=== PATIENT | female | born 1950 | race Caucasian/White ===

== ENCOUNTER 2020-09-10 10:25 | Emergency (ER) | payer MEDICARE ==
[~2020-09-10] VITALS: Ht 154.9 cm; Wt 81.8 kg
[2020-09-10] MEDS ORDERED: LOSARTAN POTASS25 MG (10:39)
[2020-09-10] MEDS ORDERED: ACETAMINOPHEN 325 MG TAB PO ONE (11:00)
[2020-09-10] MEDS ORDERED: MUPIROCIN 2% OINT 22 GM TUBE TOP ONE (11:00)
[2020-09-10] MEDS ORDERED: PIPER-TAZ 3.375 GM 50 ML IV ONE (11:00)
[2020-09-10] MEDS ORDERED: LIDOCAINE HCL 1% LOCAL INJ 20 ML VIAL INJ STA (11:00)
--- OUTSIDE RECORDS SUMMARY | 2020-09-10 11:07 | XMS REPORT | Continuity of Care Document ---
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 Data Entry Processor Name Role Phone [email or web address] Unavailable Un available Problems Problem Status Onset Date Classification Date Reported Comments Source DX:M79.89 OTHER SPECIFIED SOFT TISSUE DI Active 04/23/2020 [facility] Epigastric pain 08/17/2018 03/03/2019 [facility] Encounter for general adult medical exam ination without abnormal findings 10/25/2017 01/25/2018 [facility] Z00.00 - [facility] Active 10/19/2017 [facility] [place] Newly diagnosed diabetes Active Problem 11/01/2019 [facility] BMI 31.0-31.9,adult Active Problem 11/01/2019 [facility] Right sided sciatica Active Problem 08/19/2020 [facility] Sciatica of right side Active Problem 08/19/2020 [facility] Right sciatic nerve pain Active Problem 08/19/2020 [facility] Gastritis, presence of bleeding unspecif ied, unspecified chronicity, unspecified gastritis type Active Problem 08/19/2020 [facility] Acute right-sided low back pain with rig ht-sided sciatica Active Prob carlos 08/19/2020 [facility] Type 2 diabetes mellitus with hyperglyce torrey, without long-term current use of insulin Active Problem 08/19/2020 [facility] Lumbago with sciatica, right side Active Problem 08/2020 [facility] Lumbago with sciatica, left side Active Problem 08/2020 [facility] Incomplete right bundle branch block Active Problem 08/2020 [facility] Family history of stroke Active Problem 08/19/2020 [facility] Family history of heart attack Active Problem 08/2020 [facility] Hypertension, unspecified type Active Problem 08/2020 [facility] Mixed hyperlipidemia Active Problem 08/19/2020 [facility] Chronic obstructive pulmonary disease, u nspecified COPD type Active Prob carlos 11/01/2019 [facility] Gastroenteritis Active Diagnosis 05/28/2019 [facility] Diarrhea, unspecified type Act debora Diagnosis 1 10/28/2018 [facility] Nausea Active Diagnosis 05/23/2019 [facility] Encounter for hepatitis C screening test for low risk patient Active Diag nosis 05/28/2019 [facility] Asymptomatic menopausal state Active Diagnosis 0 05/28/2019 [facility] Routine general medical examination at a health care facility Active Diag nosis 05/28/2019 [facility] Ganglion cyst Active Problem 02/22/2018 [facility] Primary osteoarthritis of right foot Active Problem [facility] Glaucoma of both eyes, unspecified glaucoma type Active Diagnosis 03/30/2018 [facility] Prediabetes Active Diagnosis 07/21/2018 [facility] Cervical radiculopathy Active Diagnosis 03/30/2018 [facility] Cough Active Diagnosis 01/03/2020 [facility] Acute non-recurrent maxillary sinusitis Active Diagnosis 04/22/2018 [facility] Acute sinusitis, recurrence not specifie d, unspecified location Active Diag nosis 09/05/2018 [facility] Sore throat Active Diagnosis 09/05/2018 [facility] Flu-like symptoms Active Diagnosis 09/05/2018 [facility] Cellulitis, unspecified cellulitis site Active Diagnosis 01/21/2019 [facility] Herpes zoster without complication Active Diagnosis 0 01/21/2019 [facility] Adverse effect of angiotensin-converting -enzyme inhibitors, initial encounter Active Diagnosis 07/21/2018 [facility] Acute pain of right shoulder A ctive Diagnosis 1 10/15/2017 [facility] Dog bite, initial encounter Ac tive Diagnosis 0 11/02/2018 [facility] Right wrist pain Active Diagnosis 11/24/2018 [facility] Right hand pain Active Diagnosis 11/24/2018 [facility] Suspicious nevus Active Diagnosis 11/01/2019 [facility] URI with cough and congestion Active Diagnosis 0 11/25/2019 [facility] History of URI (upper respiratory infection) Active Diagnosis 02/07/2020 [facility] Exposure to COVID-19 virus Act debora Diagnosis 0 02/07/2020 [facility] Fever, unspecified fever cause Active Diagnosis 0 01/03/2020 [facility] Seasonal allergies Active Problem 08/19/2020 [facility] Pain in right knee Active Diagnosis 04/24/2020 [facility] Pain in left knee Active Diagnosis 04/24/2020 [facility] Right medial knee pain Active Diagnosis 05/01/2020 [facility] Left lateral knee pain Active Diagnosis 05/01/2020 [facility] Left leg swelling Active Diagnosis 05/01/2020 [facility] Encounter for screening mammogram for ma lignant neoplasm of breast Active Diag nosis 08/10/2020 [facility] Hypercholesterolemia (disorder) Resolved Problem TAKES MEDICATION DUE TO FAMILY HX [facility] [place] Hypertensive disorder, systemic arterial (disorder) Resolved Problem 04/25/2020 [facility] [place] Simple obesity (disorder) Acti ve Problem [facility] [place] Eructation 03/03/2019 [facility] [place] Essential (primary) hypertension 03/03/2019 [facility] [place] Obesity, unspecified 03/03/2019 [facility] [place] Body mass index (BMI) 31.0-31.9, adult 03/03/2019 [facility] [place] Personal history of nicotine dependence 03/03/2019 [facility] [place] Dietary counseling and surveillance 03/03/2019 [facility] [place] Diaphragmatic hernia without obstruction or gangrene 03/03/2019 [facility] [place] Diverticulosis of intestine, part unspec ified, without perforation or abscess without bleeding 03/03/2019 [facility] [place] Benign neoplasm of right adrenal gland 03/03/2019 [facility] [place] Cyst of kidney, acquired 03/03/2019 [facility] [place] Medications Medication Details Route Status Patient Instructions Ordering Provider Order Date Source Xyzal 1 tablet Orally Active 5 MG Orally Once a day [facility] 08/06/2020 [facility] Benzonatate 1 capsule Orally Active 200 MG Orally Q8 PRN Tereso 01/02/2020 [facility] Azithromycin 1 tablet Orally Active 500 MG Orally once ashok y Tereso 01/02/2020 [facility] Zithromax Z-Ludwin 2 tablets on the first day, then 1 tablet daily for 4 days Orally Active 250 MG Orally Once a day [place] 11/15/2019 [facility] Sucralfate 1 tablet on an empt y stomach Orally Active 1 GM Orally Twice a day [facility] 05/07/2019 [facility] Pantoprazole Sodium 1 tablet Orally Active 20 mg Orally Once a day [facility] 05/07/2019 [facility] Dicyclomine HCl 2 capsules Orally Active 10 mg Orally Four times a day [facility] 05/07/2019 [facility] Ondansetron 1 tablet on the to ngue and allow to dissolve as needed Orally Active 8 MG Orally twice a day (bid) as needed (prn) [facility] 05/07/2019 [facility] Bactrim DS 1 tablet Orally Active 800-160 MG Orally Twice a day [facility] 01/08/2019 [facility] Valtrex 1 tablet Orally Active 1 GM Orally three times a day (tid) [facility] 01/08/2019 [facility] Meloxicam 1 tablet Orally Active 15 MG Orally Once a day [facility] 10/25/2018 [facility] Augmentin 1 tablet Orally Active 875-125 MG Orally every 12 hrs [facility] 10/22/2018 [facility] Medrol (Ludwin) as directed Orally Active 4 mg Orally as directed [facility] 09/28/2018 [facility] Tramadol HCl 1 tablet as needed Orally Active 50 mg Orally up to BID [place] 09/20/2018 [facility] Protonix 40 mg, PO, Daily, # 3 0 tab, 0 Refill(s) Active 09/12/2018 [facility] rosuvastatin PO, Bedtime, 0 Re fill(s) Active 09/12/2018 [facility] Losartan PO, Daily, 0 Refill(s) Active 09/12/2018 [facility] Bromfed DM 10 ml Orally Active 30-2-10 MG/5ML Orally e very 4 hrs prn [place] 08/21/2018 [facility] Augmentin 1 tablet Orally Active 875-125 MG Orally every 12 hrs [facility] Richardson 08/21/2018 [facility] Rosuvastatin Calcium 1 tablet Orally Active 40 mg Orally Once a day [place] 08/10/2018 [facility] Losartan Potassium 1 tablet Orally Active 25 MG Orally Once a day [place] 07/16/2018 [facility] Medrol as directed & to be sta rted sat am as discussed w/ pt Orally Active 4 mg Orally as directed Nayla galicia 03/28/2018 [facility] Augmentin 1 tablet Orally Active 875-125 MG Orally every 12 hrs [place] 03/28/2018 [facility] Tramadol HCl 1 tablet as needed Orally Active 50 mg Orally up to BID Traas Richardson [facility] Lisinopril 1 tablet Orally Active 5 MG Orally Once a day [facility] Lovastatin 1 tablet with a meal Orally Active 10 MG Orally Once a day Tar[facility] Richardson [facility] Vitamin B12 not defined Orally Active 100 MCG Orally Tar[facility] Richardson [facility] Tramadol HCl 1 tablet as needed Orally Active 50 mg Orally up to BID [facility] Losartan Potassium 1 tablet Orally Active 25 MG Orally Once a day [facility] Rosuvastatin Calcium 1 tablet Orally Active 40 MG Orally qd [facility] Allergies, Adverse Reactions, Alerts Substance Category Reaction Severity Reaction type Status Date Reported Comments Source CIPRO Adverse Reaction stomach upset Adverse Reaction Active 08/06/2020 [facility] Immunizations No Data Provided for This Section Results No Data Provided for This Section Pathology Reports No Data Provided for This Section Diagnostic Reports Report Value Date Source Ext Lower Venous Doppler Unilat US PROCEDURE INFORMATION: Exam: US Duplex Left Lower Extremity Veins, Limited Exam date and time: 04/23/2020 1:09 PM Age: 69 years old Clinical indication: Swelling (edema) of limb; Lower extremity, left; Additional info: /swelling TECHNIQUE: Imaging protocol: Real-time Duplex ultrasound of the Left Lower Extremity with 2-D sandhu scale, color Doppler flow and s pectral waveform analysis with image documentation. Limited exam focused on the left lower extremity veins. COMPARISON: No relevant prior studies available. FINDINGS: Left deep veins: Unremarkable. The common femoral, femoral, proximal profunda femoral and popliteal veins are patent without thrombus. Normal Doppler waveforms. Normal compressibility and/or augmentation response. Left superficial veins: Unremarkable. Saphenofemoral junction is patent without thrombus. Soft tissues: Unremarkable. IMPRESSION: No evidence of deep vein thrombosis. Herb Degroot On 04/23/2020 13:40:41; [id number] 04/23/2020 [facility] Abdomen/Pelvis w/wo IV contrast CT Addendum 08/13/2018 at 1136 hours. The left adrenal is normal. EXAM: CT ABDOMEN AND PELVIS WITHOUT AND WITH CONTRAST DATE: 08/13/2018 8:34 AM [employer] INDICATION: Upper abdominal pain chronic. Gastritis.. ADDITIONAL INFORMATION: Status post cholecystectomy and hysterectomy. COMPARISON: None. TECHNIQUE: Volumetric CT acquisition of the abdomen and pelvis without and with the intravenous administration contrast was performed and.axial, coronal and sagittal reconstructions were rendered. Postcontrast phases: Portal Venous and Delayed. IV contrast: Omnipaque 300, 100 mL. Oral contrast: Omnipaque 300, dilute. DLP: 2629 mGy-cm FINDINGS: Lines and tubes: None. Lower thorax: Clear. Liver: Measures 14 cm in length. No focal lesions are seen. A small portion is obscured by beam hardening from cholecystectomy clips. Biliary tree: No intra- or extrahepatic biliary ductal dilation. Gallbladder: Postcholecystectomy changes. Pancreas: Moderate diffuse fatty replacement. Spleen: There are scattered tiny calcified granulomas. Measures 9.1 cm in length. Adrenals: There is a right adrenal 0.8 cm nodule that measures between 0 and 10 Hounsfield units on the noncontrast images consistent with an adenoma and measures 42% relative washout consistent with an adenoma. Kidneys and ureters: The right kidney is normal. 1. There is an interpolar left renal cor tical intermediate density cyst measuring 1.2 cm that measures 54 Hounsfield units on portal venous phase and 34 Hounsfield units on delayed phase imaging.It measures approximately 27 Hounsfield units on precontrast imaging but is difficult to localize. 2. There is a tiny partially exophytic i nterpolar posterior left renal cortical cyst. Bladder: Normal. Reproductive organs: The uterus is absent. The adnexa are unremarkable. Gastrointestinal tract: Stomach: Small hiatal hernia.. Small bowel: Unremarkable. Colon: There are a few scattered descending colonic and sigmoid diverticula no associated inflammatory changes are seen. Fecal burden. Mild. Appendix: Normal. Mesentery, peritoneum and retroperitoneum:No fluid, free air or mass. Lymph nodes: Normal. Arteries: Normal. Veins:The opacified portions are patent. Portal vein. The opacified portions are patent. Bones: Moderate lumbar degenerative changes with moderate to severe disc space narrowing is seen. Soft tissues: There is a tiny fat-containing umbilical hernia. IMPRESSION: 1. No acute abnormality seen within the abdomen and pelvis. 2. Scattered descending colonic and pro ximal sigmoid diverticula without inflammatory changes. 3. Small hiatal hernia. 4. Right adrenal adenoma. 5. Indeterminate left interpolar renal cortical hypodensity concerning for possible enhancement. Further characterization with multiphase renal CT is recommended. 6. There is a tiny lower pole exophytic 0.4 cm left renal cyst. 08/13/2018 [facility] Chest 2 views DX Study: Chest 2 views DX 10/19/2017 1:34 PM [employer] Clinical Indication:67 years Female - Z00.00 Encounter for general adult medical examination without abnormal findings ; Comparison: None available Findings: Heart size and central vasculature are within normal limits. There is no effusion or focal pneumonia. No acute osseus pathology. Status post cholecystectomy and partially visualized lower cervical ACDF. Impression: No acute abnormality. 10/19/2017 IS[facility]EL [place] Consultation Notes No Data Provided for This Section Discharge Summaries No Data Provided for This Section History and Physicals No Data Provided for This Section Vital Signs Vital Sign Value Date Comments Source Weight 179 08/06/2020 [facility] Height 61 1 [facility] Temperature Oral (F) 97.7 F 08/06/2020 [facility] Heart Rate 86 08/06/2020 [facility] Diastolic (mm Hg) 80 08/06/2020 [facility] Systolic (mm Hg) 120 08/06/2020 [facility] Weight 173 04/23/2020 [facility] Height 61 0 04/23/2020 [facility] Temperature Oral (F) 98.7 F 04/23/2020 [facility] Heart Rate 95 04/23/2020 [facility] Diastolic (mm Hg) 84 04/23/2020 [facility] Systolic (mm Hg) 126 04/23/2020 [facility] Temperature Oral (F) 98.2 F 02/06/2020 [facility] Height 61 0 02/06/2020 [facility] Temperature Oral (F) 100.9 F 01/02/2020 [facility] Height 61 0 01/02/2020 [facility] Weight 167 11/15/2019 [facility] Height 61 0 11/15/2019 [facility] Temperature Oral (F) 98.7 F 11/15/2019 [facility] Heart Rate 85 11/15/2019 [facility] Diastolic (mm Hg) 62 11/15/2019 [facility] Systolic (mm Hg) 122 11/15/2019 [facility] Weight 165 10/28/2019 [facility] Height 61 0 10/28/2019 [facility] Heart Rate 88 10/28/2019 [facility] Diastolic (mm Hg) 78 10/28/2019 [facility] Systolic (mm Hg) 118 10/28/2019 [facility] Weight 167 05/15/2019 [facility] Height 61 0 05/15/2019 [facility] Heart Rate 94 05/15/2019 [facility] Diastolic (mm Hg) 80 05/15/2019 [facility] Systolic (mm Hg) 120 05/15/2019 [facility] Weight 166 05/07/2019 [facility] Height 61 0 05/07/2019 [facility] Heart Rate 106 05/07/2019 [facility] Diastolic (mm Hg) 68 05/07/2019 [facility] Systolic (mm Hg) 94 05/07/2019 [facility] Weight 176 01/08/2019 [facility] Height 61 0 01/08/2019 [facility] Heart Rate 78 01/08/2019 [facility] Diastolic (mm Hg) 90 01/08/2019 [facility] Systolic (mm Hg) 140 01/08/2019 [facility] Weight 170 11/12/2018 [facility] Height 61 0 11/12/2018 [facility] Heart Rate 71 11/12/2018 [facility] Diastolic (mm Hg) 70 11/12/2018 [facility] Systolic (mm Hg) 112 11/12/2018 [facility] Weight 170 10/22/2018 [facility] Height 61 0 10/22/2018 [facility] Heart Rate 92 10/22/2018 [facility] Diastolic (mm Hg) 78 10/22/2018 [facility] Systolic (mm Hg) 120 10/22/2018 [facility] Weight 165 09/20/2018 [facility] Height 61 1 11/21/2017 [facility] Heart Rate 86 09/20/2018 [facility] Diastolic (mm Hg) 74 09/20/2018 [facility] Systolic (mm Hg) 128 09/20/2018 [facility] Height 154.94 cm 09/12/2018 [facility] BMI Calculated 31.43 09/12/2018 [facility] Weight 75.455 09/12/2018 [facility] Weight 167 08/21/2018 [facility] Height 61 1 10/21/2017 [facility] Temperature Oral (F) 98.1 F 08/21/2018 [facility] Heart Rate 108 08/21/2018 [facility] Diastolic (mm Hg) 74 08/21/2018 [facility] Systolic (mm Hg) 122 08/21/2018 [facility] Weight 168 08/10/2018 [facility] Height 61 1 10/10/2017 [facility] Temperature Oral (F) 97.9 F 08/10/2018 [facility] Heart Rate 62 08/10/2018 [facility] Diastolic (mm Hg) 72 08/10/2018 [facility] Systolic (mm Hg) 120 08/10/2018 [facility] Weight 168 07/16/2018 [facility] Height 61 1 [facility] Temperature Oral (F) 97.7 F 07/16/2018 [facility] Heart Rate 92 07/16/2018 [facility] Diastolic (mm Hg) 80 07/16/2018 [facility] Systolic (mm Hg) 132 07/16/2018 [facility] Weight 165 03/28/2018 [facility] Height 61 0 03/28/2018 [facility] Temperature Oral (F) 98.9 F 03/28/2018 [facility] Heart Rate 76 03/28/2018 [facility] Diastolic (mm Hg) 86 03/28/2018 [facility] Systolic (mm Hg) 122 03/28/2018 [facility] Weight 168.6 03/27/2018 [facility] Height 61 0 03/27/2018 [facility] Heart Rate 75 03/27/2018 [facility] Diastolic (mm Hg) 76 03/27/2018 [facility] Systolic (mm Hg) 120 03/27/2018 [facility] Encounters Location Location Details Encounter Type Encounter Number Reason For Visit Attending Provider ADM Date DC Date Status Source [facility] [place] [facility] [id number] Paulo Johnson 10/19/2017 10/20/2017 [facility] De [facility] [place] [facility] Di[facility] [id number] Eliazar Lagos 08/13/2018 08/14/2018 [facility] PreReg [id number] Deborah Pam 08/15/2018 09/18/2018 [facility] Outpatient [id number] AVANI SUSANA 09/12/2018 Active [facility] Outpatient [id number] Avani Susana 09/12/2018 09/13/2018 Medical [facility] PreReg [id number] Avani Susana 09/12/2018 10/25/2018 [facility] Outpatient [id number] AVANI SUSANA 10/10/2018 [facility] [id number] Avani Susana 10/10/2018 10/10/2018 [facility] Outpatient [id number] AVANI SUSANA 10/31/2018 Active [facility] Pre-Reg [id number] Avani Susana 10/31/2018 10/31/2018 Medical [facility] Outpatient [id number] AVANI SUSANA 11/21/2018 Active [facility] Outpatient [id number] Avani Susana 01/02/2019 [facility] Outpatient [id number] Deborah Grajeda Dylan 04/23/2020 04/24/2020 [facility] Procedures Procedure Code Date Perfomer Comments Source Gallbladder operation [id number] [facility], ISAEL [place] Hysterectomy<sup>1</sup> [id number] [facility], [place] [place] Neck artery repair [id number] [facility], [facility] [place] Assessment and Plan No Data Provided for This Section Plan of Care No Data Provided for This Section Social History Social History Date Source Social History TypeResponse Smoking Status Never smoker; Exposure to Tobacco Smoke None; Cigarette Smoking Last 365 Days No; Reg Smoking Cessation Counseling No entered on: 01/02/19 01/02/2019 [facility] Social History TypeResponse Smoking Status Never smoker; Exposure to Tobacco Smoke None; Cigarette Smoking Last 365 Days No; Reg Smoking Cessation Counseling No entered on: 01/02/19 01/02/2019 [facility] Social History TypeResponse Smoking Status Never smoker; Exposure to Tobacco Smoke None; Cigarette Smoking Last 365 Days No; Reg Smoking Cessation Counseling No entered on: 01/02/19 01/02/2019 ISAEL Leija No data available for this section 10/20/2017 ISAEL De Leon Family History No Data Provided for This Section Advance Directives No Data Provided for This Section Functional Status No Data Provided for This Section
--- OUTSIDE RECORDS SUMMARY | 2020-09-10 11:07 | XMS REPORT | Clinical Summary ---
Author Author [facility] Organization [facility] Address Unknown Phone Unavailable Care Team Providers Care Patient Portal Representative Name Role Phone Paulo Johnson MD PCP Allergies Comments Active Allergy Reactions Severity Noted Date Ciprofloxacin 03/19/2018 Medications End Date Status Medication Sig Dispensed Refills Start Date Active ibuprofen (ADVIL,MOTRIN) 0 800 MG tablet 8 Active lisinopril 0 (PRINIVIL,ZESTRIL) 5 mg 8 tablet Active loratadine (CLARITIN) 10 0 mg tablet 8 Active lovastatin (MEVACOR) 20 0 MG tablet 8 Active omeprazole (PriLOSEC) 20 0 MG capsule 8 Active Problems No known active problems Surgical History Surgery Date Site/Laterality Comments POLYPECTOMY CHOLECYSTECTOMY HYSTERECTOMY CERVICAL SPINE SURGERY Medical History Medical History Date Comments Allergic Hypertension Hypercholesterolemia Social History Date Tobacco Use Types Packs/Day Years Used Never Smoker Smokeless Tobacco: Never Used Drinks/Week oz/Week Comments Alcohol Use No Sex Assigned at Date Recorded Not on file Last Filed Vital Signs Not on file Plan of Treatment Health Maintenance Due Date Last Done Comments BREAST CANCER SCREENING 1998 COLONOSCOPY SCREENING 1998 SHINGLES VACCINES (#1) 1998 65+ PNEUMOCOCCAL VACCINE 2013 ( - PPSV23) INFLUENZA VACCINE 05/09/2020 Results Not on fileafter 09/10/2019 Insurance Type Payer Benefit Subscriber ID Effective Phone Address Plan / Dates Group HMO HUMANA MEDICARE HUMANA HMO [id number] 2017-P GOLD PLUS resent MEDICARE Advance Directives For more information, please contact: [phone] 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
--- OUTSIDE RECORDS SUMMARY | 2020-09-10 11:08 | XMS REPORT | Continuity of Care Document ---
Author Author [facility] t Organization [facility] Address [address] [place] [address] Phone Unavailable Care Team Providers Care Field Nurse Name Role Phone Jordan Johnson MD PCP Karson Marte Attphys Unavailable Dre Meza Attphys Charlene Orozco Attphys GINGER BRANDNO M.D. Attphys Unavailable Roge Lagos Attphys Jordan Johnson Attphys Payers Payer Name Policy Type Policy Number Effective Date Expiration Date S ource Problems Condition Name Condition Details Condition Category Status Onset Date Resolution Date Last Treatment Date Treating Clinician Comments Source DX:M79.89 OTHER SPECIFIED SOFT TISSUE DI DX:M79.89 OTHER SPECIFIED SOFT TISSUE DI Active 04/23/2020 [facility] tive 2020-04-23 00:00:00 2020-04-23 13:13:00 M paulette Silva Z00.00 - [facility] FOR GENERAL [facility]ULT [facility] Z00.00 - ENCNTR FOR GENERAL ADULT MEDIC Active 10/19/2017 [facility] [place] Diagnosis Active 2017-10-19 00:01:00 2017-10-19 13:30:00 M paulette Silva Eructation Eruc tation 03/03/2019 [facility] [place] Problem 2019-03-03 11:33:12 [facility] Obesity, unspecified Obes ity, unspecified 03/03/2019 [facility] [place] Problem 2019-03-03 11:33:12 Zachary Silva Personal history of nicotine dependence Personal history of nicotine dependence 03/03/2019 [facility] [place] Problem 2019-03-03 11:33:12 [facility] Dietary counseling and surveillance Dietary counseling and surveillance 03/03/2019 [facility] [place] Problem 2019-03-03 11:33:12 [facility] Diaphragmatic hernia without obstruction or gangrene Diaphragmatic hernia without obstruction or gangrene 03/03/2019 [facility] [place] Problem 2019-03-03 11:33:12 Brody Silva Diverticulosis of intestine, part unspec ified, without perforation or abscess without bleeding Diverticulosis o f intestine, part unspecified, without perforation or abscess without bleeding 03/03/2019 [facility] [place] Problem 2019-03-03 11:33:12 [facility] 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 03/03/2019 [facility] [place] Problem 2019-03-03 11:33:12 [facility] Cyst of kidney, acquired Cyst of kidney, acquired 03/03/2019 [facility] [place] Problem 2019-03-03 11:33:12 [facility] Hypercholesterolemia (disorder) Hypercholesterolemia (disorder) Resolved Problem 04/25/2020 TAK[facility] MEDICATION DUE TO [facility]ILY [facility] Resolved 2020-04-25 22:48:51 [facility] Hypertensive disorder, systemic arterial (disorder) Hypertensive disorder, systemic arterial (disorder) [facility]olved 2020-04-25 22:48:51 [facility] Newly diagnosed diabetes Newl y diagnosed diabetes Active Problem 11/01/2019 [facility] Problem Active 2019-11-01 03:03:43 [facility] BMI 31.0-31.9,adult BMI 31.0-31.9,adult Active Problem 11/01/2019 [facility] Problem Active 2019-11-01 03:03:43 Zachary Silva Right sided sciatica Righ t sided sciatica Active Problem 08/19/2020 [facility] Problem Active 2020-08-19 03:04:43 Zachary Silva Gastritis, presence of bleeding unspecif ied, unspecified chronicity, unspecified gastritis type Gastritis, prese nce of bleeding unspecified, unspecified chronicity, unspecified gastritis type Active Problem 08/19/[address] [facility] Problem Active 2020-08-19 03:04:43 Zachary Silva Acute right-sided low back pain with right-sided sciat ica Acute right-sided low back pain with right-sided sciatica Active Problem 08/19/[address] [facility] Problem Active 2020-08-19 03:04:43 Zachary Silva Type 2 diabetes mellitus with hyperglyce torrey, without long-term current use of insulin Type 2 diabetes mellitus with hyperglycemia, without long-term current use of insulin Active Problem 08/19/[address] [facility] Problem Active 2020-08-19 03:04:43 Zachary Silva Lumbago with sciatica, left side Lumbago with sciatica, left side Active Problem 08/19/[address] [facility] Problem Active 2020-08-19 03:04:43 Memor aman Silva Incomplete right bundle branch block Incomplete right bundle branch block Active Problem 08/19/[address] [facility] Problem Active 2020-08-19 03:04:43 Brody sagar Silva Family history of stroke Fami ly history of stroke Active Problem 08/19/[address] [facility] Problem Active 2020-08-19 03:04:43 Zachary Silva Family history of heart attack Family history of heart attack Active Problem 08/19/[address] [facility] Problem Active 2020-08-19 03:04:43 Memor iahuan Silva Hypertension, unspecified type Hypertension, unspecified type Active Problem 08/19/[address] [facility] Problem Active 2020-08-19 03:04:43 Memor iahuan Silva Mixed hyperlipidemia Mixe d hyperlipidemia Active Problem 08/19/[address] [facility] Problem Active 2020-08-19 03:04:43 Zachary Silva Chronic obstructive pulmonary disease, unspecified [employer] D type Chronic obstructive pulmonary disease, unspecified COPD type Active Problem 11/01/[address] [facility] Problem Active 2019-11-01 03:03:43 Zachary Silva Gastroenteritis Kevan roenteritis Active Diagnosis 05/28/2019 [facility] Diagnosis Active 2019-05-28 02:02:41 Zachary Silva Diarrhea, unspecified type Herlinda rrhea, unspecified type Active Diagnosis 08/28/2019 [facility] Diagnosis Active 2019-08-28 03:20:50 Benny Silva Nausea Naus ea Active Diagnosis 05/23/2019 [facility] [place] Diagnosis Active 2019-05-23 02:00:43 Zachary Silva Encounter for hepatitis C screening test for low risk patient Encounter for hepatitis C screening test for low risk patient Active Diagnosis 05/28/2019 [facility] Diagnosis Active 2019-05-28 02:02:41 Zachary Silva Asymptomatic menopausal state Asymptomatic menopausal state Active Diagnosis 05/28/2019 [facility] Diagnosis Active 2019-05-28 02:02:41 Memor aman Silva Routine general medical examination at a health care acility Routine general medical examination at a health care facility Active Diagnosis 05/28/2019 [facility] Diagnosis Active 2019-05-28 02:02:41 Zachary Silva Ganglion cyst Gang lion cyst Active Problem 02/22/2018 [facility] Problem Active 2018-02-22 02:45:20 Zachary Silva Primary osteoarthritis of right foot Primary osteoarthritis of right foot Active Problem 02/22/2018 [facility] Problem Active 2018-02-22 02:45:20 Zachary Silva Glaucoma of both eyes, unspecified glaucoma type Glaucoma of both eyes, unspecified glaucoma type Active Diagnosis 03/30/2018 [facility] Diagnosis Active 2018-03-30 02:10:56 Zachary Silva Prediabetes Pred iabetes Active Diagnosis 07/21/2018 [facility] Diagnosis Active 2018-07-21 02:02:28 Zachary Silva Cervical radiculopathy Cerv ical radiculopathy Active Diagnosis 03/30/2018 [facility] Diagnosis Active 2018-03-30 02:10:56 Zachary Silva Cough Coug h Active Diagnosis 01/03/2020 [facility] Diagnosis Active 2020-01-03 02:04:07 Zachary Silva Acute non-recurrent maxillary sinusitis Acute non- recurrent maxillary sinusitis Active Diagnosis 04/22/2018 [facility] Diagnosis Active 2018-04-22 02:00:58 [facility] Acute sinusitis, recurrence not specified, unspecified location Acute sinusitis, recurrence not specified, unspecified location Active Diagnosis 09/05/2018 [facility] Diagnosis Active 2018-09-05 03:05:52 [facility] Sore throat Sore throat Active Diagnosis 09/05/2018 [facility] Diagnosis Active 2018-09-05 03:05:52 [facility] Flu-like symptoms Flu- like symptoms Active Diagnosis 09/05/2018 [facility] Diagnosis Active 2018-09-05 03:05:52 [facility] Cellulitis, unspecified cellulitis site Cellulitis, unspecified cellulitis site Active Diagnosis 01/21/2019 [facility] Diagnosis Active 2019-01-21 02:00:13 [facility] Herpes zoster without complication Herpes zoster without complication Active Diagnosis 01/21/2019 [facility] Diagnosis Active 2019-01-21 02:00:13 [facility] Adverse effect of oddtgmglkko-wuoshgkkwz-wzfrdl inhibi tors, initial encounter Adverse effect of xiixegvtmus-tfvlassork-czmcbw inhibitors, initial encounter Active Diagnosis 07/21/[address] [facility] Diagnosis Active 2018-07-21 02:02:28 Me morial [facility] Acute pain of right shoulder A cute pain of right shoulder Active Diagnosis 08/15/[address] [facility] Diagnosis Active 2018-08-15 03:03:20 [facility] Dog bite, initial encounter Do g bite, initial encounter Active Diagnosis 11/02/2018 [facility] Diagnosis Active 2018-11-02 03:02:31 [facility] Right wrist pain Righ t wrist pain Active Diagnosis 11/24/2018 [facility] Diagnosis Active 2018-11-24 03:04:52 [facility] Right hand pain Righ t hand pain Active Diagnosis 11/24/2018 [facility] Diagnosis Active 2018-11-24 03:04:52 [facility] Suspicious nevus Susp icious nevus Active Diagnosis 11/01/2019 [facility] Diagnosis Active 2019-11-01 03:03:43 [facility] URI with cough and congestion URI with cough and congestion Active Diagnosis 11/25/2019 [facility] Diagnosis Active 2019-11-25 03:03:23 [facility] History of URI (upper respiratory infection) History of URI (upper respiratory infection) Active Diagnosis 02/07/2020 [facility] Diagnosis Active 2020-02-07 02:02:51 [facility] Exposure to COVID-19 virus Exp osure to COVID-19 virus Active Diagnosis 02/07/2020 [facility] Diagnosis Active 2020-02-07 02:02:51 [facility] Fever, unspecified fever cause Fever, unspecified fever cause Active Diagnosis 01/03/2020 [facility] Diagnosis Active 2020-01-03 02:04:07 [facility] Seasonal allergies Seas onal allergies Active Problem 08/19/2020 [facility] Problem Active 2020-08-19 03:04:43 [facility] Right medial knee pain Righ t medial knee pain Active Diagnosis 05/01/2020 [facility] Diagnosis Active 2020-05-01 02:01:40 [facility] Left lateral knee pain Left lateral knee pain Active Diagnosis 05/01/2020 [facility] Diagnosis Active 2020-05-01 02:01:40 [facility] Left leg swelling Left leg swelling Active Diagnosis 05/01/[address] [facility] Diagnosis Active 2020-05-01 02:01:40 Zachary Silva Encounter for screening mammogram for malignant neopla sm of breast Encounter for screening mammogram for malignant neoplasm of breast Active Diagnosis 08/10/[address] [facility] Diagnosis Active 2020-08-10 03:03:04 [facility] Simple obesity (disorder) Simp le obesity (disorder) Active Problem 04/25/2020 [facility] Problem Active 2020-04-25 22:48:51 [facility] Epigastric pain Epig astric pain 08/17/2018 03/03/2019 [facility] Problem 2018-08-17 05:52:39 2019-03-03 11:33:12 2019-03-03 11:33:12 [facility] Allergies, Adverse Reactions, Alerts Allergy Name Allergy Type Status Severity Reaction(s) Onset Date Inacti ve Date Treating Clinician Comments Source CIPRO CIPRO Active stomach upset 2020-08-06 00:00:00 [facility] pentazocine DA Active U 2019-07-08 00:00:00 [facility] Ciprofloxacin Propensity to adverse reactions to drug Active 2018-03-19 00:00:00 Mookie Shoemaker t penicillin G DA Active SV 2011-09-27 00:00:00 [facility] Social History Social Habit Start Date Stop Date Quantity Comments Source Sex Assigned At Johnny dias Jamshid Tobacco use and exposure 2018-03-19 00:00:00 2018-03-19 00:00:00 Renzo patel used Mookie Breen Alcohol intake 2018-03-19 00:00:00 2018-03-19 00:00:00 Current non-drinker of alcohol (finding) Mookie Breen Social History 2017-10-20 05:59:00 2017-10-20 05:59:00 [facility] Smoking Status Start Date Stop Date Source Social History [facility] Medications Ordered Medication Name Filled Medication Name Start Date Stop Da te Current Medication? Ordering Clinician Indication Dosage Frequency Signature (SIG) Comments Components Source Tramadol HCl 2020-08-10 03:03:04 Yes Deborah Richardson 1 tablet as needed [facility] Losartan Potassium 2020-08-10 03:03:04 Yes Deborah Richardson 1 tablet [facility] Rosuvastatin Calcium 2020-08-10 03:03:04 Yes Deborah Addi howard Richardson 1 tablet [facility] Xyzal 2020-08-06 00:00:00 Yes Deborah Richardson 1 tablet [facility] Benzonatate 2020-01-02 00:00:00 Yes Paty Tereso 1 capsule [facility] Azithromycin 2020-01-02 00:00:00 Yes Paty Tereso 1 tablet [facility] Zithromax Z-Ludwin 2019-11-15 00:00:00 Yes Bob Marte 2 tablets on the first day, then 1 tablet daily for 4 days [facility] Tramadol HCl 2019-11-01 03:03:43 Yes Deborah Richardson 1 tablet as needed [facility] Sucralfate 2019-05-07 00:00:00 Yes Deborah Grajeda Richardson 1 tablet on an empty stomach [facility] Pantoprazole Sodium 2019-05-07 00:00:00 Yes Deborah Blevins l Irchardson 1 tablet [facility] Dicyclomine HCl 2019-05-07 00:00:00 Yes Deborah Richardson 2 capsules [facility] Ondansetron 2019-05-07 00:00:00 Yes Deborah Richardson 1 tablet on the tongue and allow to dissolve as needed [facility] Bactrim DS 2019-01-08 00:00:00 Yes Deborah Richardson 1 tablet [facility] Valtrex 2019-01-08 00:00:00 Yes Deborah Richardson 1 tablet [facility] Meloxicam 2018-10-25 00:00:00 Yes Deborah Richardson 1 tablet [facility] Augmentin 2018-10-22 00:00:00 Yes Deborah Richardson 1 tablet [facility] Medrol (Ludwin) 2018-09-28 00:00:00 Yes Deborah Richardson as directed [facility] Tramadol HCl 2018-09-20 00:00:00 Yes Bob Marte 1 tablet as needed [facility] Protonix 2018-09-12 17:48:00 Yes 40 mg, PO, Daily, # 30 tab, 0 Refill(s) [facility] rosuvastatin 2018-09-12 17:48:00 Yes PO, Bed time, 0 Refill(s) [facility] Losartan 2018-09-12 17:48:00 Yes PO, Daily, 0 Refill(s) [facility] Bromfed DM 2018-08-21 00:00:00 Yes Bob Marte 10 ml [facility] Augmentin 2018-08-21 00:00:00 Yes Deborah Richardson 1 tablet [facility] Lovastatin 2018-08-15 03:03:20 Yes Deborah Richardson 1 tablet with a meal [facility] Vitamin B12 2018-08-15 03:03:20 Yes Deborah Richardson not defined [facility] Rosuvastatin Calcium 2018-08-10 00:00:00 Yes Bob Marte 1 tablet [facility] Lisinopril 2018-07-21 02:02:28 Yes Deborah Richardson 1 tablet [facility] Losartan Potassium 2018-07-16 00:00:00 Yes Bob Marte 1 tablet [facility] Medrol 2018-03-28 00:00:00 Yes Luis Shirley as directed & to be started sat am as discussed w/ pt Ivonne mi [facility] Augmentin 2018-03-28 00:00:00 Yes Luis Shirley 1 tablet [facility] loratadine (CLARITIN) 10 mg tablet 2018-01-23 00:00:00 Yes Mookie Breen ibuprofen (ADVIL,MOTRIN) 800 MG tablet 2018-01-20 00:00:00 Yes Mookie Breen lisinopril (PRINIVIL,ZESTRIL) 5 mg tablet 2018-01-20 00:00:00 Yes Mookie Breen lovastatin (MEVACOR) 20 MG tablet 2018-01-20 00:00:00 Yes Mookie Breen omeprazole (PriLOSEC) 20 MG capsule 2018-01-20 00:00:00 Yes Mookie Breen Vital Signs Vital Name Observation Time Observation Value Comments Source Weight 2020-08-06 18:00:00 [facility] Height 2020-08-06 18:00:00 [facility] Temperature Oral (F) 2020-08-06 18:00:00 97.7 F [facility] Heart Rate 2020-08-06 18:00:00 [facility] Diastolic (mm Hg) 2020-08-06 18:00:00 [facility] Systolic (mm Hg) 2020-08-06 18:00:00 [facility] Weight 2020-04-23 15:15:00 [facility] Height 2020-04-23 15:15:00 [facility] Temperature Oral (F) 2020-04-23 15:15:00 98.7 F [facility] Heart Rate 2020-04-23 15:15:00 [facility] Diastolic (mm Hg) 2020-04-23 15:15:00 [facility] Systolic (mm Hg) 2020-04-23 15:15:00 Brody rial [facility] Temperature Oral (F) 2020-02-06 15:45:00 98.2 F [facility] Height 2020-02-06 15:45:00 [facility] Temperature Oral (F) 2020-01-02 16:00:00 100.9 F [facility] Height 2020-01-02 16:00:00 [facility] Weight 2019-11-15 15:00:00 [facility] Height 2019-11-15 15:00:00 [facility] Temperature Oral (F) 2019-11-15 15:00:00 98.7 F [facility] Heart Rate 2019-11-15 15:00:00 [facility] Diastolic (mm Hg) 2019-11-15 15:00:00 [facility] Systolic (mm Hg) 2019-11-15 15:00:00 Brody [facility] Weight 2019-10-28 17:45:00 [facility] Height 2019-10-28 17:45:00 [facility] Heart Rate 2019-10-28 17:45:00 [facility] Diastolic (mm Hg) 2019-10-28 17:45:00 [facility] Systolic (mm Hg) 2019-10-28 17:45:00 Brody rial [facility] Weight 2019-05-15 15:15:00 [facility] Height 2019-05-15 15:15:00 [facility] Heart Rate 2019-05-15 15:15:00 [facility] Diastolic (mm Hg) 2019-05-15 15:15:00 [facility] Systolic (mm Hg) 2019-05-15 15:15:00 Brody rial [facility] Weight 2019-05-07 19:00:00 [facility] Height 2019-05-07 19:00:00 [facility] Heart Rate 2019-05-07 19:00:00 [facility] Diastolic (mm Hg) 2019-05-07 19:00:00 [facility] Systolic (mm Hg) 2019-05-07 19:00:00 Brody rial [facility] Weight 2019-01-08 14:45:00 [facility] Height 2019-01-08 14:45:00 [facility] Heart Rate 2019-01-08 14:45:00 [facility] Diastolic (mm Hg) 2019-01-08 14:45:00 [facility] Systolic (mm Hg) 2019-01-08 14:45:00 Brody rial [facility] Weight 2018-11-12 20:45:00 [facility] Height 2018-11-12 20:45:00 [facility] Heart Rate 2018-11-12 20:45:00 [facility] Diastolic (mm Hg) 2018-11-12 20:45:00 [facility] Systolic (mm Hg) 2018-11-12 20:45:00 Brody rial [facility] Weight 2018-10-22 22:00:00 [facility] Height 2018-10-22 22:00:00 [facility] Heart Rate 2018-10-22 22:00:00 [facility] Diastolic (mm Hg) 2018-10-22 22:00:00 [facility] Systolic (mm Hg) 2018-10-22 22:00:00 Brody sagar [facility] Weight 2018-09-20 20:00:00 [facility] Height 2018-09-20 20:00:00 [facility] Heart Rate 2018-09-20 20:00:00 [facility] Diastolic (mm Hg) 2018-09-20 20:00:00 [facility] Systolic (mm Hg) 2018-09-20 20:00:00 Brody sagar [facility] Height 2018-09-12 17:46:00 154.94 cm [facility] BMI Calculated 2018-09-12 17:46:00 [facility] Weight 2018-09-12 17:46:00 [facility] Weight 2018-08-21 21:00:00 [facility] Height 2018-08-21 21:00:00 [facility] Temperature Oral (F) 2018-08-21 21:00:00 98.1 F [facility] Heart Rate 2018-08-21 21:00:00 [facility] Diastolic (mm Hg) 2018-08-21 21:00:00 [facility] Systolic (mm Hg) 2018-08-21 21:00:00 Brody sagar [facility] Weight 2018-08-10 14:45:00 [facility] Height 2018-08-10 14:45:00 [facility] Temperature Oral (F) 2018-08-10 14:45:00 97.9 F [facility] Heart Rate 2018-08-10 14:45:00 [facility] Diastolic (mm Hg) 2018-08-10 14:45:00 [facility] Systolic (mm Hg) 2018-08-10 14:45:00 Brody rial [facility] Weight 2018-07-16 16:45:00 [facility] Height 2018-07-16 16:45:00 [facility] Temperature Oral (F) 2018-07-16 16:45:00 97.7 F [facility] Heart Rate 2018-07-16 16:45:00 [facility] Diastolic (mm Hg) 2018-07-16 16:45:00 [facility] Systolic (mm Hg) 2018-07-16 16:45:00 Brody rial [facility] Weight 2018-03-28 20:00:00 [facility] Height 2018-03-28 20:00:00 [facility] Temperature Oral (F) 2018-03-28 20:00:00 98.9 F [facility] Heart Rate 2018-03-28 20:00:00 [facility] Diastolic (mm Hg) 2018-03-28 20:00:00 [facility] Systolic (mm Hg) 2018-03-28 20:00:00 Brody [facility] Weight 2018-03-27 16:30:00 [facility] Height 2018-03-27 16:30:00 [facility] Heart Rate 2018-03-27 16:30:00 [facility] Diastolic (mm Hg) 2018-03-27 16:30:00 [facility] Systolic (mm Hg) 2018-03-27 16:30:00 Brody rial [facility] Procedures Procedure Date / Time Performed Performing Clinician [facility] e Gallbladder operation [facility] ermann Hysterectomy<sup>1</sup> [facility] Neck artery repair [facility] Herm jacqueline Plan of Care Planned Activity Planned Date Details Comments Source Future Scheduled Test 2020-05-09 00:00:00 INFLUENZA VACCINE [code = INFLUENZA VACCINE] [facility] Scheduled Test 2013 00:00:00 65+ PNEUMOCOCCAL V ACCINE (1 of 1 - PPSV23) [code = 65+ PNEUMOCOCCAL VACCINE (1 of 1 - PPSV23)] [facility] Future Scheduled Test 1998 00:00:00 BREAST CANCER SCRE ENING [code = BREAST CANCER SCREENING] [facility] Future Scheduled Test 1998 00:00:00 COLONOSCOPY SCREEN ING [code = COLONOSCOPY SCREENING] [facility] Scheduled Test 1998 00:00:00 SHINGLES VACCINES (#1) [code = SHINGLES VACCINES (#1)] [facility] Encounters Start Date/Time End Date/Time Encounter Type Admission Type Attendi [facility] Care Department Encounter ID Source 2020-08-17 09:35:00 2020-08-17 09:35:00 Outpatient [facility] [id number] eClinicalWorks 2020-08-06 12:00:00 2020-08-06 12:00:00 Outpatient [facility] [id number] eClinicalWorks 2020-07-07 22:52:00 2020-07-07 22:52:00 Outpatient [facility] [id number] eClinicalEye-Q 2020-04-23 13:05:00 2020-04-23 23:59:00 Outpatient Aimee Marte [facility] [id number] 2020-04-23 14:58:00 2020-04-23 14:58:00 [facility] [id number] eClinicalWorks 2020-04-23 13:05:00 2020-04-23 13:05:00 Outpatient [facility] MED [id number] 2020-04-23 10:15:00 2020-04-23 10:15:00 [facility] [id number] eClinicalWorks 2020-02-06 10:45:00 2020-02-06 10:45:00 [facility] [id number] eClinicalWorks 2020-01-29 11:25:00 2020-01-29 11:25:00 [facility] [id number] eClinicalWorks 2020-01-02 11:00:00 2020-01-02 11:00:00 [facility] Practice [facility] [id number] eClinicalWorks 2020-01-01 16:18:00 2020-01-01 16:18:00 Outpatient [facility] [id number] eClinicalWorks 2019-11-15 09:00:00 2019-11-15 09:00:00 Outpatient [facility] [id number] eClinicalWorks 2019-10-28 11:45:00 2019-10-28 11:45:00 Outpatient [facility] [id number] eClinicalWorks 2019-06-11 11:21:00 2019-06-11 11:21:00 Outpatient [facility] [id number] eClinicalWorks 2019-06-11 11:19:00 2019-06-11 11:19:00 Outpatient [facility] [id number] eClinicalWorks 2019-05-15 10:15:00 2019-05-15 10:15:00 Outpatient [facility] [id number] eClinicalWorks 2019-05-08 09:53:00 2019-05-08 09:53:00 Outpatient [facility] [id number] eClinicalWorks 2019-05-07 14:00:00 2019-05-07 14:00:00 Outpatient [facility] [id number] eClinicalWorks 2019-01-08 09:45:00 2019-01-08 09:45:00 Outpatient [facility] [id number] eClinicalWorks 2018-11-12 14:45:00 2018-11-12 14:45:00 Outpatient [facility] [id number] eClinicalWorks 2018-10-31 09:40:00 2018-10-31 09:40:00 Outpatient Juan José Meza [facility] [id number] 2018-10-25 17:00:00 2018-10-25 17:00:00 Outpatient [facility] [id number] eClinicalWorks 2018-10-25 11:52:00 2018-10-25 11:52:00 Outpatient [facility] [id number] eClinicalWorks 2018-09-12 12:22:16 2018-10-25 10:00:00 Outpatient Juan José Meza [facility] [id number] 2018-10-22 16:00:00 2018-10-22 16:00:00 Outpatient [facility] [id number] eClinicalWorks 2018-10-10 14:52:00 2018-10-10 14:52:00 Outpatient [facility] [id number] eClinicalWorks 2018-10-10 10:30:00 2018-10-10 10:30:00 Outpatient Juan José Meza [facility] [id number] 2018-09-28 10:31:00 2018-09-28 10:31:00 Outpatient [facility] [id number] eClinicalWorks 2018-09-26 11:00:00 2018-09-26 11:00:00 Outpatient [facility] [id number] eClinicalWorks 2018-09-24 10:45:00 2018-09-24 10:45:00 Outpatient [facility] [id number] eClinicalWorks 2018-09-20 14:00:00 2018-09-20 14:00:00 Outpatient [facility] [id number] eClinicalWorks 2018-08-15 11:01:15 2018-09-18 11:00:00 Outpatient Deborah Manuel [facility] [id number] 2018-09-12 11:15:00 2018-09-12 23:59:59 Outpatient Juan José Meza [facility] [id number] 2018-09-05 09:30:00 2018-09-05 09:30:00 Appointment; GINGER BRANDON M.D. HUANG, EDDIE, M.D. [facility] [place] [id number] [facility] 2018-08-21 15:00:00 2018-08-21 15:00:00 Outpatient [facility] [id number] eClinicalWorks 2018-08-14 13:05:00 2018-08-14 13:05:00 Outpatient [facility] [id number] eClinicalWorks 2018-08-14 13:03:00 2018-08-14 13:03:00 Outpatient [facility] [id number] eClinicalWorks 2018-08-13 08:28:00 2018-08-13 23:59:00 Outpatient Eliazar Solomon OIB OIB [id number] 2018-08-10 08:45:00 2018-08-10 08:45:00 Outpatient [facility] [id number] eClinicalWorks 2018-07-16 11:45:00 2018-07-16 11:45:00 Outpatient [facility] [id number] eClinicalWorks 2018-07-13 10:01:00 2018-07-13 10:01:00 Outpatient [facility] [id number] eClinicalWorks 2018-03-28 15:00:00 2018-03-28 15:00:00 Outpatient [facility] [id number] eClinicalWorks 2018-03-27 11:30:00 2018-03-27 11:30:00 Outpatient [facility] [id number] eClinicalWorks 2018-02-21 15:36:00 2018-02-21 15:36:00 Outpatient [facility] [id number] eClinicalWorks 2018-02-21 15:31:00 2018-02-21 15:31:00 Outpatient [facility] [id number] eClinicalWorks 2017-10-19 13:19:00 2017-10-19 23:59:00 Outpatient Paulo Johnson [facility] [id number] Results Test Description Test Time Test Comments Results Result Comments Source BASIC METABOLIC PANEL 2019-07-08 15:51:00 Test Item SODIUM (test code = NA) 141 mmol/L 136-145 N POTASSIUM (test code = K) 3.7 mmol/L 3.5-5.1 N CHLORIDE (test code = CL) 108.0 mmol/L 98-107 H CARBON DIOXIDE (test code = CO2) 24.0 mmol/L 21-32 N ANION GAP (test code = GAP) 12.7 10-20 N GLUCOSE (test code = GLU) 161 mg/dL 74-106 H BLOOD UREA NITROGEN (test code = BUN) 16 mg/dL 7-18 N GLOMERULAR FILTRATION RATE (test code = GFR) 55 mL/min >=60 Estimated GFR by using Modified MDRD formula.Chronic kidney disease is defined as either kidney damageor GFR <60 mL/min/1.73 m2 for >3 months. CREATININE (test code = CREAT) 1.00 mg/dL 0.55-1.02 N Note change in reference range due to change in reagent. BUN/CREATININE RATIO (test code = BUN/CREA) 16.4 10-20 N CALCIUM (test code = CA) 8.7 mg/dL 8.5-10.1 N [id number] 15:51:00* Test Item Value Reference Range Interpretation Comments TROPONIN-I (test code = TROPI) <0.015 ng/mL 0-0.045 N BASIC METABOLIC [id number] 15:43:00* Test Item Value Reference Range Interpretation Comments SODIUM (test code = NA) 141 mmol/L 136-145 N POTASSIUM (test code = K) 3.7 mmol/L 3.5-5.1 N CHLORIDE (test code = CL) 108.0 mmol/L 98-107 H CARBON DIOXIDE (test code = CO2) mmol/L 21-32 ANION GAP (test code = GAP) 10-20 GLUCOSE (test code = GLU) mg/dL 74-106 BLOOD UREA NITROGEN (test code = BUN) mg/dL 7-18 GLOMERULAR FILTRATION RATE (test code = GFR) mL/min >=60 CREATININE (test code = CREAT) mg/dL 0.55-1.02 BUN/CREATININE RATIO (test code = BUN/CREA) 10-20 CALCIUM (test code = CA) 8.7 mg/dL 8.5-10.1 N [id number] 15:43:00* Test Item Value Reference Range Interpretation Comments TROPONIN-I (test code = TROPI) ng/mL 0-0.045 CBC W/O [id number] 15:41:00* Test Item Value Reference Range Interpretation Comments WHITE BLOOD CELL (test code = WBC) 5.8 K/mm3 4.5-12.5 N RED BLOOD CELL (test code = RBC) 4.63 mill/mm3 3.7-5.2 N HEMOGLOBIN (test code = HGB) 12.9 gram/dL 11.5-15.5 N HEMATOCRIT (test code = HCT) 38.4 % 36.0-46.0 N MEAN CELL VOLUME (test code = MCV) 82.9 fL 80-98 N MEAN CELL HGB (test code = MCH) 27.9 picogram 27.0-33.0 N MEAN CELL HGB CONCETRATION (test code = MCHC) 33.6 gram/dL 33.0-36. 0 N RED CELL DISTRIBUTION WIDTH (test code = RDW) 13.0 % 11.6-16. 2 N PLATELET COUNT (test code = PLT) 260 K/mm3 150-450 N MEAN PLATELET VOLUME (test code = MPV) 9.0 fL 6.7-11.0 N CBC W/O [id number] 15:28:00* Test Item Value Reference Range Interpretation Comments WHITE BLOOD CELL (test code = WBC) K/mm3 4.5-12.5 RED BLOOD CELL (test code = RBC) mill/mm3 3.7-5.2 HEMOGLOBIN (test code = HGB) 12.9 gram/dL 11.5-15.5 N HEMATOCRIT (test code = HCT) 38.4 % 36.0-46.0 N MEAN CELL VOLUME (test code = MCV) fL 80-98 MEAN CELL HGB (test code = MCH) picogram 27.0-33.0 MEAN CELL HGB CONCETRATION (test code = MCHC) gram/dL 33.0-36. 0 RED CELL DISTRIBUTION WIDTH (test code = RDW) % 11.6-16. 2 PLATELET COUNT (test code = PLT) K/mm3 150-450 MEAN PLATELET VOLUME (test code = MPV) fL 6.7-11.0 - CT C-SPINE W/O [id number] 15:05:00 Name: KURTIS PASTRANA [facility] : 1950 Age/S: 69 / F Erna Blancas Unit #: [id number] Loc: [place] [address] Phys: Parth Bond DO Acct: [id number] Dis Date: Status: REG ER PHONE #: [phone] Exam Date: 07/08/2019 1448 FAX #: [phone] Reason: Neck Pain EXAMS: CPT CODE: [id number] CT C-SPINE W/O CONTRAST [id number] REASON FOR EXAM: Neck Pain EXAM ORDER DATE: 07/08/2019 2:37 PM Ordering MDomitila: Parth Bond DO PROCEDURE: - CT C-SPINE W/O CONTRAST FINDINGS: CT images of the cervical spine were obtained without IV contrast at 2.5mm. Reconstructed coronal and sagittal images were also provided. Dose modulation, iterative reconstruction, and/or weight based adjustment of the MA/KV was utilized to reduce the radiation dose to as low as reasonably achievable. The osseous structures are intact. Anterior cervical fusion of C4-C7 noted with fixation plate present. Sever e narrowing of C3-4 disc space The central canal is patent. IMPRESSION: Anterior cervical fusion of C4-C7. No acute osseous abnormality at 1505 Reported and signed by: Roger Cooley M.D. CC: Eliceo Skinner DO; Parth Bond DO Technologist:Ayanna Garcia RT(R)(CT) CTDI: DLP: Trnscb Date/Time: 07/08/20 (3495) [email or web address] Orig Print D/T: S: 07/08/2019 (4860) PAGE 1 Signed Report - XR CHEST 1 [id number] 15:03:00 FAX: Eliceo Ying DO [phone] [place]: B St: REG FAX: Parth Bond DO Name: KURTIS PASTRANA [facility] : 1950 Age/S: 69/F Erna Blancas Unit #: [id number] Loc: [place] [address] Phys: Parth Bond DO Acct: [id number] Dis Date: Status: REG ER PHONE #: [phone] Exam Date: 07/08/2019 1450 FAX #: [phone] Reason: CHEST PAIN EXAMS: CPT CODE: [id number] XR CHEST 1 V [id number] REASON FOR EXAM: CHEST PAIN EXAM ORDER DATE: 07/08/2019 2:37 PM Ordering Kwame: Parth Bond DO PROCEDURE: - XR CHEST 1 V COMPARISON: FINDINGS: Portable AP frontal view of the chest obtained at 2:52 PM shows clear lungs without evidence of consolidation. There is no evidence of effusion. The heart size is within normal limits. Pulmonary vasculatures are unremarkable. IMPRESSION: No active disease. at 1503 Reported and signed by: Roger Cooley M.D. CC: Eliceo Skinner DO; Parth Bond DO Technologist: Anita JUNIOR(R) Trnscrd Date/Time/By: 07/08/2019 (5948) : By: Favian Orig Print D/T: S: 07/08/2019 (0861) PAGE 1 Signed Report - CT HEAD/BRAIN W/O [id number] 14:50:00 Name: KURTIS PASTRANA [facility] : 1950 Age/S: 69 / F Erna Blancas Unit #: [id number] Loc: [place] [address] Phys: Parth Bond DO Acct: [id number] Dis Date: Status: REG ER PHONE #: Exam Date: 07/08/2019 1447 FAX #: Reason: HEADACHE EXAMS: CPT CODE: [id number] CT HEAD/BRAIN W/O CONT [id number] REASON FOR EXAM: HEADACHE EXAM ORDER DATE: 07/08/2019 2:37 PM Ordering Kwame: Parth Bond DO PROCEDURE: - CT HEAD/BRAIN W/O CONT COMPARISON: FINDINGS: CT images of the brain were obtained without IV contrast. Dose modulation, iterative reconstruction, and/or weight based adjustment of the MA/KV was utilized to reduce the radiation dose to as low as reasonably achievable. The brain parenchy ma is within normal limits. The sandhu-white matter delineation is unremarka ble. The ventricles, cisterns, and sulci are unremarkable. There is no bekah dence of hemorrhage, mass, mass effect. There is no evidence of acute or old infarct. The calvarium is intact. IMPRESSION: Small h ematoma in the right posterior scalp. No acute intracranial findings. at 1450 Reported and signed by: Roger Cooley M.D. CC: Eliceo Parker DO; Parth Bond DO Technologist:Sol Garcia RT(R)(CT) CTDI: DLP: Trnscb Date/Time: 07/08/2019 (2070) Favian Orig Print D/T: S: 07/08/2019 (4900) PAGE 1 Signed Report SCR MAMM BILATERAL BRYANT CAD [id number] 12:36:19 - SCR MAMM BILATERAL BRYANT CAD DIGITALBILATERAL DIGITAL SCREENING MAMMOGRAM 3D/2D WITH CAD: 06/12/2019CLINICAL: Asymptomatic. Digital breast tomosynthesis was performed in addition to routine CC and MLO views. Current mammographic images were evaluated by either a [employer] M-Vu or a [employer] ImageChecker CAD (computer aided detection system). Comparison is made to exams dated 03/20/2018 mammogram, 11/30/2016 mammogram - [facility], and 10/04/2013 mammogram - [facility]. The tissue of both breasts is predominantly fatty. There are benign calcifications in both breasts. No suspicious mass, architectural distortion, malignant type calcification, or lymph node abnormality detected. Breast architecture is stable compared to prior exams.IMPRESSION: BENIGNThere is no mammographic evidence of malignancy. Resume annual screening mammography in one year. Leeann winter/kenny:06/12/2019 12:36:19 Imagi ng Technologist: Marina ELLER, [facility] sent: JAZZMINE Erickson 1-2 Normal Mammogram BI-RADS: 2 Benign[U] XRAY SHOULDER MIN 2 VWS RIGHT [id number] 2018-09-05 10:27:00Images acquired, not reported on this accession number. [facility]
--- NOTE | 2020-09-10 11:50 | NUR ---
Contacted [place] [employer] [phone] spoke to Alon, case #[id number]
[2020-09-10] MEDS ORDERED: PROBIOTIC & AC1 EACH PO (11:52)
[2020-09-10] MEDS ORDERED: AUGMENTIN 875-1 EACH PO (11:52)
[2020-09-10] MEDS ORDERED: IBUPROFEN IB200 MG PO (11:52)
[2020-09-10] MEDS ORDERED: ACETAMINOPHEN500 MG PO (11:52)
--- NOTE | 2020-09-10 11:52 | Emergency Department Note ---
History of Present Illnes History of Present Illness Chief Complaint: Skin Rash or Abscess History of Present Illness This is a 70 year old female. She reports that her own dogs bit her around 6 am when she was breaking them apart. Pt has a skin flap and punctures to left hand and 2 puncture wounds on her right calf. She washed the wounds with tap water then covered it antibiotics. She went to an urgent care. The hand wound was examined and she was sent here. 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 Any updates have been documented here. Past Medical History Recent Fever: No Clinical Suspicion of Infectio: No New/Unexplained Change in Ment: No Past Medical History: Hypertension Past Surgical History: Hysterectomy Other Surgery: Neck surgery neck surgery Social History Smoking Cessation: Never Smoker Counseling Performed: No Alcohol Use: None Any Illegal Drug Use: No Physically hurt or threatened: No Other Any Pre-Existing Lines (PICC,: No Review of Systems Review of Systems Constitutional: Reports no symptoms EENTM: Reports no symptoms Cardiovascular: Reports no symptoms Respiratory: Reports no symptoms Gastrointestinal: Reports no symptoms Genitourinary: Reports no symptoms Musculoskeletal: Reports as per HPI Integumentary: Reports as per HPI Neurological: Reports no symptoms Psychological: Reports no symptoms Endocrine: Reports no symptoms Hematological/Lymphatic: Reports no symptoms Physical Exam Related Data Allergies: Coded Allergies: ciprofloxacin (Verified Adverse Reaction, Mild, stomach upset, 09/10/20) Triage Vital Signs Vital Signs Date Time Temp Pulse Resp B/P (MAP) Pulse Ox O2 Delivery O2 Flow Rate FiO2 09/10/20 10:30 98.2 79 18 155/96 99 Room Air Physical Exam CONSTITUTIONAL HENT EYES NECK PULMONARY CARDIOVASCULAR GASTROINTESTINAL GENITOURINARY SKIN Skin: Present lesion (two small punctured wounds right ventura whic was cleaned and coved with bandaid), Present other (irregular skin tear, deep with a flap or dorsal left hand, above the 5th metacarpal area, tendons are intact, no bone seen. She can flex and extend the wrist and fingers FROM) MUSCULOSKELETAL NEUROLOGICAL PSYCHOLOGICAL Procedures Laceration Laceration: Laceration 1 Side: left Description: flap, irregular, contaminated Depth: involves muscle layer Local anesthesia: lidocaine 1% Amount of anesthesia (mL): 7 Pre-repair: wound exposed, irrigated extensively, deep structures intact Skin layer closed with: vicryl Size (cm): 3-0 Technique: simple, interrupted Size (cm): 5-0 Number of sutures: 3 Additional comments temporary wound closure. Pt will f/u with hand surgeon the next day Dr Augusta Rolon Assessment & Plan Medical Decision Making MDM dog bite left hand, punctured wound right leg Assessment & Plan Final Impression: (1) Acute pain due to trauma (2) Dog bite of left hand (3) Open wound of left hand due to dog bite (4) Dog bite of right lower leg Depart Disposition: HOME, SELF-CARE Last Vital Signs Date Time Temp Pulse Resp B/P (MAP) Pulse Ox O2 Delivery O2 Flow Rate FiO2 09/10/20 10:30 98.2 79 18 155/96 99 Room Air Home Meds Active Scripts Ibuprofen (IBUPROFEN IB) 200 Mg Tablet, 3 TAB PO Q6H PRN for pain, #90 Prov:VIJAYA SIFUENTES MD 09/10/20 Acetaminophen (ACETAMINOPHEN) 500 Mg Tablet, 1 TAB PO Q6H PRN for pain, #90 THERAPEUTICALLY SUBSTITUTED WITH ACETAMINOPHEN 325MG Prov:VIJAYA SIFUENTES MD 09/10/20 Lactobac Cmb #3/Fos/Pantethine (PROBIOTIC & ACIDOPHILUS CAP) 1 Each Capsule, 1 CAP PO BID, #30 Prov:VIJAYA SIFUENTES MD 09/10/20 Amoxicillin/Potassium Clav (AUGMENTIN 875-125 TABLET) 1 Each Tablet, 875 MG PO DAILY, #20 TAB Prov:VIJAYA SIFUENTES MD 09/10/20 Reported Medications Losartan Potassium (LOSARTAN POTASSIUM) 25 Mg Tablet, DAILY 09/10/20 Medications in the ED Piperacillin Sod/ Tazobactam Sod 50 ml @ 50 mls/hr NOW ONCE IV Last administered on 09/10/20at 11:25; Admin Dose 50 MLS/HR; Start 09/10/20 at 11:00; Stop 09/10/20 at 11:59 Lidocaine HCl 10 ml ONCE STAT INJ Last administered on 09/10/20at 11:25; Admin Dose 10 ML; Start 09/10/20 at 11:00; Stop 12/3/20 at 11:16; Status DC Mupirocin 1 gm ONCE ONCE TOP Last administered on 09/10/20at 11:25; Admin Dose 1 GM; Start 09/10/20 at 11:00; Stop 09/10/20 at 11:08; Status DC Acetaminophen 650 mg ONCE ONCE PO Last administered on 09/10/20at 11:25; Admin Dose 650 MG; Start 09/10/20 at 11:00; Stop 09/10/20 at 11:16; Status DC Physician Attestation Provider Attestation case discussed with Dr Orlin Rolon, temporary wound closure of left hand and f/u the next day VIJAYA SIFUENTES MD Sep 10, 2020 11:52
[2020-09-10 12:03] VITALS: BP 134/73
== END 2020-09-10 12:00 | disposition home or self-care (01) ==
LOC: FSED 10:45
DX: S61.452A Open bite of left hand, initial encounter (principal); S81.851A Open bite, right lower leg, initial encounter; W54.0XXA Bitten by dog, initial encounter; Y92.008 Other place in unspecified non-institutional (private) residence as the place of occurrence of the external cause; I10 Essential (primary) hypertension
CPT/HCPCS: 12002; 99283; J2543

== ENCOUNTER 2020-09-11 20:05 | Emergency (ER) | payer MEDICARE ==
[~2020-09-11] VITALS: Ht 154.9 cm; Wt 81.6 kg
[~2020-09-11 20:05] MED LIST: ACETAMINOPHEN500 MG PO; AUGMENTIN 875-1 EACH PO; IBUPROFEN IB200 MG PO; LOSARTAN POTASS25 MG; PROBIOTIC & AC1 EACH PO
--- OUTSIDE RECORDS SUMMARY | 2020-09-11 20:14 | XMS REPORT | Continuity of Care Document ---
Author Author [facility] t Organization [facility] Address [address] [place] [address] Phone Unavailable Care Team Providers Care Pomology Teacher Name Role Phone DO DEBORAH BURCH PCP Karey Urbina MA Attphys Unavailable Karson Marte Attphys Unavailable Dre Meza Attphys Veronica Burch Attphys GINGER BRANDON M.D. Attphys Unavailable Roge Lagos Attphys Jordan Johnson Attphys Payers Payer Name Policy Type Policy Number Effective Date Expiration Date S noe [facility] GOLD PLUS [id number]/ [id number] 2017 00:00:00 Damico Mandaen Problems Condition Name Condition Details Condition Category Status Onset Date Resolution Date Last Treatment Date Treating Clinician Comments Source DX:M79.89 OTHER SPECIFIED SOFT TISSUE DI DX:M79.89 OTHER SPECIFIED SOFT TISSUE DI Active 04/23/2020 [facility] Diagnosis Ac tive 2020-04-23 00:00:00 2020-04-23 13:13:00 Karson Silva Z00.00 - [facility] Z00.00 - [facility] Active 10/19/2017 [facility] Diagnosis Active 2017-10-19 00:01:00 2017-10-19 13:30:00 M paulette Ricardo Acute pain due to trauma Problem Active [facility] Dog bite of left hand Problem Active [facility] Open wound of left hand due to dog bite Problem Active [facility] Dog bite of right lower leg Problem Active [facility] Eructation Eruc tation 03/03/2019 [facility] Problem 2019-03-03 11:33:12 [facility] Obesity, unspecified Obes ity, unspecified 03/03/2019 [facility] Problem 2019-03-03 11:33:12 [facility] Personal history of nicotine dependence Personal history of nicotine dependence 03/03/2019 [facility] Problem 2019-03-03 11:33:12 [facility] Dietary counseling and surveillance Dietary counseling and surveillance 03/03/2019 [facility] Problem 2019-03-03 11:33:12 [facility] Diaphragmatic hernia without obstruction or gangrene Diaphragmatic hernia without obstruction or gangrene 03/03/2019 [facility] Problem 2019-03-03 11:33:12 [facility]dyeugenia [facility] [place] Diverticulosis of intestine, part unspec ified, without perforation or abscess without bleeding Diverticulosis o f intestine, part unspecified, without perforation or abscess without bleeding 03/03/2019 [facility] Problem 2019-03-03 11:33:12 [facility] 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 03/03/2019 [facility] Problem 2019-03-03 11:33:12 [facility] Cyst of kidney, acquired Cyst of kidney, acquired 03/03/2019 [facility] Problem 2019-03-03 11:33:12 [facility] Hypercholesterolemia (disorder) Hypercholesterolemia (disorder) Resolved Problem 04/25/2020 TAKES MEDICATION DUE TO FAMILY HX [facility] Problem Resolved 2020-04-25 22:48:51 [facility] Hypertensive disorder, systemic arterial (disorder) Hypertensive disorder, systemic arterial (disorder) [facility] Resolved 2020-04-25 22:48:51 [facility] Newly diagnosed diabetes Newl y diagnosed diabetes Active Problem 11/01/2019 [facility] Problem Active 2019-11-01 03:03:43 [facility] [place] BMI 31.0-31.9,adult BMI 31.0-31.9,adult Active Problem 11/01/2019 [facility] Problem Active 2019-11-01 03:03:43 Zachary Silva Right sided sciatica Righ t sided sciatica Active Problem 08/19/2020 [facility] Problem Active 2020-08-19 03:04:43 Zachary Graciaann Gastritis, presence of bleeding unspecif ied, unspecified chronicity, unspecified gastritis type Gastritis, prese nce of bleeding unspecified, unspecified chronicity, unspecified gastritis type Active Problem 08/19/2020 [facility] Problem Active 2020-08-19 03:04:43 Zachary Silva Acute right-sided low back pain with right-sided sciat ica Acute right-sided low back pain with right-sided sciatica Active Problem 08/19/2020 [facility] Problem Active 2020-08-19 03:04:43 Zachary Silva Type 2 diabetes mellitus with hyperglyce torrey, without long-term current use of insulin Type 2 diabetes mellitus with hyperglycemia, without long-term current use of insulin Active Problem 08/19/2020 [facility] Problem Active 2020-08-19 03:04:43 Zachary Silva Lumbago with sciatica, left side Lumbago with sciatica, left side Active Problem 08/19/2020 [facility] Problem Active 2020-08-19 03:04:43 Memor aman Silva Incomplete right bundle branch block Incomplete right bundle branch block Active Problem 08/19/2020 [facility] Problem Active 2020-08-19 03:04:43 Brody sagar Silva Family history of stroke Fami ly history of stroke Active Problem 08/19/2020 [facility] Problem Active 2020-08-19 03:04:43 Zachary Silva Family history of heart attack Family history of heart attack Active Problem 08/19/2020 [facility] Problem Active 2020-08-19 03:04:43 [facility] Hypertension, unspecified type Hypertension, unspecified type Active Problem 08/19/2020 [facility] Problem Active 2020-08-19 03:04:43 Benny Silva Mixed hyperlipidemia Mixe d hyperlipidemia Active Problem 08/19/2020 [facility] Problem Active 2020-08-19 03:04:43 Zachary Silva Chronic obstructive pulmonary disease, unspecified 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 Chronic obstructive pulmonary disease, unspecified COPD type Active Problem 11/01/2019 [facility] Problem Active 2019-11-01 03:03:43 Zachary Silva Gastroenteritis Kevan roenteritis Active Diagnosis 05/28/2019 [facility] Diagnosis Active 2019-05-28 02:02:41 Zachary Silva Diarrhea, unspecified type Herlinda rrhea, unspecified type Active Diagnosis 08/28/2019 [facility] Diagnosis Active 2019-08-28 03:20:50 Benny Silva Nausea Naus ea Active Diagnosis 05/23/2019 [facility] Diagnosis Active 2019-05-23 02:00:43 Zachary Silva Encounter for hepatitis C screening test for low risk patient Encounter for hepatitis C screening test for low risk patient Active Diagnosis 05/28/2019 [facility] Diagnosis Active 2019-05-28 02:02:41 Zachary Silva Asymptomatic menopausal state Asymptomatic menopausal state Active Diagnosis 05/28/2019 [facility] Diagnosis Active 2019-05-28 02:02:41 Benny Silva Routine general medical examination at a health care acility Routine general medical examination at a health care facility Active Diagnosis 05/28/2019 [facility] Diagnosis Active 2019-05-28 02:02:41 Zachary Silva Ganglion cyst Gang lion cyst Active Problem 02/22/2018 [facility] Problem Active 2018-02-22 02:45:20 Zachary Silva Primary osteoarthritis of right foot Primary osteoarthritis of right foot Active Problem 02/22/2018 [facility] Problem Active 2018-02-22 02:45:20 Zachary Silva Glaucoma of both eyes, unspecified glaucoma type Glaucoma of both eyes, unspecified glaucoma type Active Diagnosis 03/30/2018 [facility] Diagnosis Active 2018-03-30 02:10:56 Zachary Silva Prediabetes Pred iabetes Active Diagnosis 07/21/2018 [facility] Diagnosis Active 2018-07-21 02:02:28 [facility] [place] Cervical radiculopathy Cerv ical radiculopathy Active Diagnosis 03/30/2018 [facility] Diagnosis Active 2018-03-30 02:10:56 [facility] [place] Cough Coug h Active Diagnosis 01/03/2020 [facility] Diagnosis Active 2020-01-03 02:04:07 [facility] Acute non-recurrent maxillary sinusitis Acute non- recurrent maxillary sinusitis Active Diagnosis 04/22/2018 [facility] Diagnosis Active 2018-04-22 02:00:58 [facility] [place] Acute sinusitis, recurrence not specified, unspecified location Acute sinusitis, recurrence not specified, unspecified location Active Diagnosis 09/05/2018 [facility] Diagnosis Active 2018-09-05 03:05:52 [facility] [place] Sore throat Sore throat Active Diagnosis 09/05/2018 [facility] Diagnosis Active 2018-09-05 03:05:52 Zachary Ricardo Flu-like symptoms Flu- like symptoms Active Diagnosis 09/05/2018 [facility] Diagnosis Active 2018-09-05 03:05:52 [facility] [place] Cellulitis, unspecified cellulitis site Cellulitis, unspecified cellulitis site Active Diagnosis 01/21/2019 [facility] Diagnosis Active 2019-01-21 02:00:13 [facility] [place] Herpes zoster without complication Herpes zoster without complication Active Diagnosis 01/21/2019 [facility] Diagnosis Active 2019-01-21 02:00:13 Zachary Graciaann Adverse effect of eumezhvzzxl-dojcxgnltt-uqlqul inhibi tors, initial encounter Adverse effect of mnwoajpbzuv-uxchdnobsn-hkbtfe inhibitors, initial encounter Active Diagnosis 07/21/2018 [facility] Diagnosis Active 2018-07-21 02:02:28 Me morial [place] Acute pain of right shoulder A cute pain of right shoulder Active Diagnosis 08/15/2018 [facility] Diagnosis Active 2018-08-15 03:03:20 Zachary Graciaann Dog bite, initial encounter Do g bite, initial encounter Active Diagnosis 11/02/2018 [facility] Diagnosis Active 2018-11-02 03:02:31 [facility] [place] Right wrist pain Righ t wrist pain Active Diagnosis 11/24/2018 [facility] Diagnosis Active 2018-11-24 03:04:52 Zachary Silva Right hand pain Righ t hand pain Active Diagnosis 11/24/2018 [facility] Diagnosis Active 2018-11-24 03:04:52 Zachary Graciaann Suspicious nevus Susp icious nevus Active Diagnosis 11/01/2019 [facility] Diagnosis Active 2019-11-01 03:03:43 Zachary Silva URI with cough and congestion URI with cough and congestion Active Diagnosis 11/25/2019 [facility] Diagnosis Active 2019-11-25 03:03:23 Zachary Silva History of URI (upper respiratory infection) History of URI (upper respiratory infection) Active Diagnosis 02/07/2020 [facility] Diagnosis Active 2020-02-07 02:02:51 Zachary Graciaann Exposure to COVID-19 virus Exp osure to COVID-19 virus Active Diagnosis 02/07/2020 [facility] Diagnosis Active 2020-02-07 02:02:51 [facility] Fever, unspecified fever cause Fever, unspecified fever cause Active Diagnosis 01/03/2020 [facility] Diagnosis Active 2020-01-03 02:04:07 [facility] Seasonal allergies Seas onal allergies Active Problem 08/19/2020 [facility] Problem Active 2020-08-19 03:04:43 Zachary Silva Right medial knee pain Righ t medial knee pain Active Diagnosis 05/01/2020 [facility] Diagnosis Active 2020-05-01 02:01:40 Zachary Silva Left lateral knee pain Left lateral knee pain Active Diagnosis 05/01/2020 [facility] Diagnosis Active 2020-05-01 02:01:40 Zachary Silva Left leg swelling Left leg swelling Active Diagnosis 05/01/2020 [facility] Diagnosis Active 2020-05-01 02:01:40 Zachary Graciaann Encounter for screening mammogram for malignant neopla sm of breast Encounter for screening mammogram for malignant neoplasm of breast Active Diagnosis 08/10/2020 [facility] Diagnosis Active 2020-08-10 03:03:04 Memor ial Ricardo Simple obesity (disorder) Simp le obesity (disorder) Active Problem 04/25/2020 [facility] Problem Active 2020-04-25 22:48:51 Benny Silva Epigastric pain Epig astric pain 08/17/2018 03/03/2019 [facility] Problem 2018-08-17 05:52:39 2019-03-03 11:33:12 2019-03-03 11:33:12 [facility] Allergies, Adverse Reactions, Alerts Allergy Name Allergy Type Status Severity Reaction(s) Onset Date Inacti ve Date Treating Clinician Comments Source Ciprofloxacin Propensity to adverse reactions Active Mild s tomach upset 2020-09-10 00:00:00 [facility] CIPRO CIPRO Active stomach upset 2020-08-06 00:00:00 [facility] pentazocine DA Active U 2019-07-08 00:00:00 [facility] Ciprofloxacin Propensity to adverse reactions to drug Active 2018-03-19 00:00:00 Mookie Shoemaker t penicillin G DA Active SV 2011-09-27 00:00:00 [facility] Social History Social Habit Start Date Stop Date Quantity Comments Source Sex Assigned At Johnny thurstonrandal Breen Exposure to SARS-CoV-2 (event) Not sure Mookie Breen Tobacco use and exposure 2018-03-19 00:00:00 2018-03-19 00:00:00 Renzo patel used Mookie Breen Alcohol intake 2018-03-19 00:00:00 2018-03-19 00:00:00 Current non-drinker of alcohol (finding) Mookie Breen Social History 2017-10-20 05:59:00 2017-10-20 05:59:00 [facility] Smoking Status Start Date Stop Date Source Social History [facility] Medications Ordered Medication Name Filled Medication Name Start Date Stop Da te Current Medication? Ordering Clinician Indication Dosage Frequency Signature (SIG) Comments Components Source Acetaminophen Acetaminophen 2020-09-10 11:52:00 Yes 1 Every 6 Hours as needed for Pain [facility] Amoxicillin/Potassium Clav (Augmentin 875-125 Tablet) 1 Each TABLET Amoxicillin/Potassium Clav (Augmentin 875-125 Tablet) 1 Each TABLET 2020-09-10 11:52:00 Yes 875 Daily [facility] Ibuprofen (Ibuprofen Ib) 200 Mg TABLET Ibuprofen (Ibuprofen Ib) 200 Mg TABLET 2020-09-10 11:52:00 Yes 3 Every 6 Hours as n eeded for Pain [facility] Lactobac Cmb #3/Fos/Pantethine (Probiotic & Acidophilu s Cap) 1 Each CAPSULE Lactobac Cmb #3/Fos/Pantethine (Probiotic & Acidophilus Cap) 1 Each CAPSULE 2020-09-10 11:52:00 Yes 1 Twice A Day [facility] Tramadol HCl 2020-08-10 03:03:04 Yes Deborah Grajeda Dylan 1 tablet as needed [facility] Losartan Potassium 2020-08-10 03:03:04 Yes Deborah Grajeda Richardson 1 tablet [facility] Rosuvastatin Calcium 2020-08-10 03:03:04 Yes Deborah Addi Richardson 1 [facility] Xyzal 2020-08-06 00:00:00 Yes Deborah Grajeda Richardson 1 tablet [facility] Benzonatate 2020-01-02 00:00:00 Yes Paty Tereso 1 capsule [facility] Azithromycin 2020-01-02 00:00:00 Yes Paty Tereso 1 tablet [facility] Zithromax Z-Ludwin 2019-11-15 00:00:00 Yes Bob Marte 2 tablets on the first day, then 1 tablet daily for 4 days [facility] Tramadol HCl 2019-11-01 03:03:43 Yes Deborah Grajeda Dylan 1 tablet as needed [facility] Sucralfate 2019-05-07 00:00:00 Yes Deborah Grajeda Dylan 1 tablet on an empty stomach [facility] Pantoprazole Sodium 2019-05-07 00:00:00 Yes Deborah Richardson 1 tablet [facility] Dicyclomine HCl 2019-05-07 00:00:00 Yes Deborah Grajeda Dylan 2 capsules [facility] Ondansetron 2019-05-07 00:00:00 Yes Deborah Grajeda Dylan 1 tablet on the tongue and allow to dissolve as needed [facility] [place] Bactrim DS 2019-01-08 00:00:00 Yes Deborah Grajeda Dylan 1 tablet [facility] Valtrex 2019-01-08 00:00:00 Yes Deborah Grajeda Dylan 1 tablet [facility] Meloxicam 2018-10-25 00:00:00 Yes Deborah Grajeda Dylan 1 tablet [facility] Augmentin 2018-10-22 00:00:00 Yes Deborah Grajeda Dylan 1 tablet [facility] Medrol (Ludwin) 2018-09-28 00:00:00 Yes Deborah Richardson as directed [facility] Tramadol HCl 2018-09-20 00:00:00 Yes Bob Marte 1 tablet as needed [facility] Protonix 2018-09-12 17:48:00 Yes 40 mg, PO, Daily, # 30 tab, 0 Refill(s) [facility] rosuvastatin 2018-09-12 17:48:00 Yes PO, Bed time, 0 Refill(s) [facility] Losartan 2018-09-12 17:48:00 Yes PO, Daily, 0 Refill(s) [facility] Bromfed DM 2018-08-21 00:00:00 Yes Bob Marte 10 ml [facility] Augmentin 2018-08-21 00:00:00 Yes Deborah Richardson 1 tablet [facility] Lovastatin 2018-08-15 03:03:20 Yes Deborah Richardson 1 tablet with a meal [facility] Vitamin B12 2018-08-15 03:03:20 Yes Deborah Richardson not defined [facility] Rosuvastatin Calcium 2018-08-10 00:00:00 Yes Bob Marte 1 tablet [facility] Lisinopril 2018-07-21 02:02:28 Yes Deborah Richardson 1 tablet [facility] Losartan Potassium 2018-07-16 00:00:00 Yes Bob Marte 1 tablet [facility] Medrol 2018-03-28 00:00:00 Yes Luis Shirley as directed & to be started sat am as discussed w/ pt Ivonne mi [place] Augmentin 2018-03-28 00:00:00 Yes Luis Shirley 1 tablet [facility] loratadine (CLARITIN) 10 mg tablet 2018-01-23 00:00:00 Yes Mookie Breen ibuprofen (ADVIL,MOTRIN) 800 MG tablet 2018-01-20 00:00:00 Yes Mookie Breen lisinopril (PRINIVIL,ZESTRIL) 5 mg tablet 2018-01-20 00:00:00 Yes Mookie Breen lovastatin (MEVACOR) 20 MG tablet 2018-01-20 00:00:00 Yes Mookie Breen omeprazole (PriLOSEC) 20 MG capsule 2018-01-20 00:00:00 Yes Mookie Breen Losartan Potassium Losartan Potassium Yes [facility] Vital Signs Vital Name Observation Time Observation Value Comments Source Body Temperature 2020-09-10 12:03:00 97.0 [degF] [facility] Heart Rate 2020-09-10 12:03:00 71 /min [facility] Respiratory rate 2020-09-10 12:03:00 16 /min [facility] BP Systolic 2020-09-10 12:03:00 134 mm[Hg] [facility] BP Diastolic 2020-09-10 12:03:00 73 mm[Hg] [facility] Oxygen saturation by Pulse oximetry 2020-09-10 12:03:00 98 /min [facility] Weight 2020-09-10 10:30:00 180.38 [lb_av] [facility] BMI (Body Mass Index) 2020-09-10 10:30:00 34.1 kg/m2 [facility] Weight 2020-08-06 18:00:00 [facility] Height 2020-08-06 18:00:00 [facility] Temperature Oral (F) 2020-08-06 18:00:00 97.7 F [facility] Heart Rate 2020-08-06 18:00:00 [facility] Diastolic (mm Hg) 2020-08-06 18:00:00 Mem [facility] Systolic (mm Hg) 2020-08-06 18:00:00 Brody rial [facility] Weight 2020-04-23 15:15:00 [facility] Height 2020-04-23 15:15:00 [facility] [place] Temperature Oral (F) 2020-04-23 15:15:00 98.7 F [facility] Heart Rate 2020-04-23 15:15:00 [facility] Diastolic (mm Hg) 2020-04-23 15:15:00 Mem o[facility] Systolic (mm Hg) 2020-04-23 15:15:00 Brody rial [place] Temperature Oral (F) 2020-02-06 15:45:00 98.2 F [facility] Height 2020-02-06 15:45:00 [facility] [place] Temperature Oral (F) 2020-01-02 16:00:00 100.9 F [facility] Height 2020-01-02 16:00:00 [facility] Weight 2019-11-15 15:00:00 [facility] [place] Height 2019-11-15 15:00:00 [facility] Temperature Oral (F) 2019-11-15 15:00:00 98.7 F [facility] Heart Rate 2019-11-15 15:00:00 [facility] Diastolic (mm Hg) 2019-11-15 15:00:00 Mem orial [facility] Systolic (mm Hg) 2019-11-15 15:00:00 Brody rial [facility] Weight 2019-10-28 17:45:00 [facility] Height 2019-10-28 17:45:00 [facility] Heart Rate 2019-10-28 17:45:00 [facility] Diastolic (mm Hg) 2019-10-28 17:45:00 Mem [facility] Systolic (mm Hg) 2019-10-28 17:45:00 Brody riahuan [place] Weight 2019-05-15 15:15:00 [facility] Height 2019-05-15 15:15:00 [facility] Heart Rate 2019-05-15 15:15:00 [facility] [place] Diastolic (mm Hg) 2019-05-15 15:15:00 Mem o[facility] Systolic (mm Hg) 2019-05-15 15:15:00 Brody rial [place] Weight 2019-05-07 19:00:00 [facility] [place] Height 2019-05-07 19:00:00 [facility] Heart Rate 2019-05-07 19:00:00 [facility] Diastolic (mm Hg) 2019-05-07 19:00:00 [facility] [place] Systolic (mm Hg) 2019-05-07 19:00:00 Brody rial [place] Weight 2019-01-08 14:45:00 [facility] [place] Height 2019-01-08 14:45:00 [facility] Heart Rate 2019-01-08 14:45:00 [facility] Diastolic (mm Hg) 2019-01-08 14:45:00 [facility] [place] Systolic (mm Hg) 2019-01-08 14:45:00 Brody sagar [facility] Weight 2018-11-12 20:45:00 [facility] Height 2018-11-12 20:45:00 [facility] Heart Rate 2018-11-12 20:45:00 [facility] Diastolic (mm Hg) 2018-11-12 20:45:00 [facility] [place] Systolic (mm Hg) 2018-11-12 20:45:00 Brody keith [place] Weight 2018-10-22 22:00:00 [facility] [place] Height 2018-10-22 22:00:00 [facility] [place] Heart Rate 2018-10-22 22:00:00 [facility] Diastolic (mm Hg) 2018-10-22 22:00:00 Mem o[facility] Systolic (mm Hg) 2018-10-22 22:00:00 Brody keith [place] Weight 2018-09-20 20:00:00 [facility] Height 2018-09-20 20:00:00 [facility] [place] Heart Rate 2018-09-20 20:00:00 [facility] [place] Diastolic (mm Hg) 2018-09-20 20:00:00 Mem [facility] Systolic (mm Hg) 2018-09-20 20:00:00 Brody keith [facility] Height 2018-09-12 17:46:00 154.94 cm [facility] BMI Calculated 2018-09-12 17:46:00 Ivonne mi [place] Weight 2018-09-12 17:46:00 [facility] [place] Weight 2018-08-21 21:00:00 [facility] Height 2018-08-21 21:00:00 [facility] [place] Temperature Oral (F) 2018-08-21 21:00:00 98.1 F [facility] [place] Heart Rate 2018-08-21 21:00:00 [facility] Diastolic (mm Hg) 2018-08-21 21:00:00 Mem o[facility] Systolic (mm Hg) 2018-08-21 21:00:00 Brody keith [facility] Weight 2018-08-10 14:45:00 [facility] [place] Height 2018-08-10 14:45:00 [facility] [place] Temperature Oral (F) 2018-08-10 14:45:00 97.9 F [facility] Heart Rate 2018-08-10 14:45:00 [facility] Diastolic (mm Hg) 2018-08-10 14:45:00 Mem o[facility] Systolic (mm Hg) 2018-08-10 14:45:00 Brody keith [place] Weight 2018-07-16 16:45:00 [facility] Height 2018-07-16 16:45:00 [facility] [place] Temperature Oral (F) 2018-07-16 16:45:00 97.7 F [facility] [place] Heart Rate 2018-07-16 16:45:00 [facility] [place] Diastolic (mm Hg) 2018-07-16 16:45:00 Mem orial [facility] Systolic (mm Hg) 2018-07-16 16:45:00 Brody rial [facility] Weight 2018-03-28 20:00:00 [facility] Height 2018-03-28 20:00:00 [facility] Temperature Oral (F) 2018-03-28 20:00:00 98.9 F [facility] [place] Heart Rate 2018-03-28 20:00:00 [facility] Diastolic (mm Hg) 2018-03-28 20:00:00 Mem o[facility] Systolic (mm Hg) 2018-03-28 20:00:00 Brody rial [place] Weight 2018-03-27 16:30:00 [facility] [place] Height 2018-03-27 16:30:00 [facility] Heart Rate 2018-03-27 16:30:00 [facility] Diastolic (mm Hg) 2018-03-27 16:30:00 Mem o[facility] Systolic (mm Hg) 2018-03-27 16:30:00 Brody rial [facility] Procedures Procedure Date / Time Performed Performing Clinician [facility] e Gallbladder operation [facility] ermann Hysterectomy<sup>1</sup> [facility] [place] Neck artery repair [facility] jacqueline Plan of Care Planned Activity Planned Date Details Comments Source Future Scheduled Test 2020-05-09 00:00:00 INFLUENZA VACCINE [code = INFLUENZA VACCINE] [facility] Scheduled Test 2013 00:00:00 65+ PNEUMOCOCCAL V ACCINE (1 of 1 - PPSV23) [code = 65+ PNEUMOCOCCAL VACCINE (1 of 1 - PPSV23)] [facility] Scheduled Test 1998 00:00:00 BREAST CANCER SCRE ENING [code = BREAST CANCER SCREENING] [facility] Scheduled Test 1998 00:00:00 COLONOSCOPY SCREEN ING [code = COLONOSCOPY SCREENING] [facility] Scheduled Test 1998 00:00:00 SHINGLES VACCINES (#1) [code = SHINGLES VACCINES (#1)] [facility] Instructions Animal Bites - Adult [facility] Encounters Start Date/Time End Date/Time Encounter Type Admission Type [facility] Facility Care Department Encounter ID Source 2020-09-10 10:45:00 2020-09-10 12:00:00 Departed Emergency Room [facility] [id number] [facility] 2020-08-17 09:35:00 2020-08-17 09:35:00 [facility] [id number] eClinicalWorks 2020-08-06 12:00:00 2020-08-06 12:00:00 [facility]patient [facility] [id number] eClinicalWorks 2020-07-07 22:52:00 2020-07-07 22:52:00 [facility] [id number] eClinicalWorks 2020-04-23 13:05:00 2020-04-23 23:59:00 Outpatient Aimee Marte [facility] [id number] 2020-04-23 14:58:00 2020-04-23 14:58:00 [facility] [id number] eClinicalWorks 2020-04-23 13:05:00 2020-04-23 13:05:00 Outpatient [facility] MED [id number] 2020-04-23 10:15:00 2020-04-23 10:15:00 Outpatient [facility] [id number] eClinicalWorks 2020-02-06 10:45:00 2020-02-06 10:45:00 Outpatient [facility] [id number] eClinicalWorks 2020-01-29 11:25:00 2020-01-29 11:25:00 [facility] [id number] eClinicalWorks 2020-01-02 11:00:00 2020-01-02 11:00:00 [facility] [id number] eClinicalWorks 2020-01-01 16:18:00 2020-01-01 16:18:00 Outpatient [facility] [id number] eClinicalWorks 2019-11-15 09:00:00 2019-11-15 09:00:00 [facility] [id number] eClinicalWorks 2019-10-28 11:45:00 2019-10-28 11:45:00 Outpatient [facility] [id number] eClinicalWorks 2019-06-11 11:21:00 2019-06-11 11:21:00 [facility] [id number] eClinicalWorks 2019-06-11 11:19:00 2019-06-11 11:19:00 [facility] [id number] eClinicalWorks 2019-05-15 10:15:00 2019-05-15 10:15:00 [facility] [id number] eClinicalWorks 2019-05-08 09:53:00 2019-05-08 09:53:00 [facility] [id number] eClinicalWorks 2019-05-07 14:00:00 2019-05-07 14:00:00 [facility] [id number] eClinicalWorks 2019-01-08 09:45:00 2019-01-08 09:45:00 Outpatient [facility] [id number] eClinicalWorks 2018-11-12 14:45:00 2018-11-12 14:45:00 Outpatient [facility] [id number] eClinicalWorks 2018-10-31 09:40:00 2018-10-31 09:40:00 Outpatient Juan José Meza [facility] [id number] 2018-10-25 17:00:00 2018-10-25 17:00:00 Outpatient [facility] [id number] eClinicalWorks 2018-10-25 11:52:00 2018-10-25 11:52:00 Outpatient [facility] [id number] eClinicalWorks 2018-09-12 12:22:16 2018-10-25 10:00:00 Outpatient Juan José Meza [facility] [id number] 2018-10-22 16:00:00 2018-10-22 16:00:00 Outpatient [facility] [id number] eClinicalWorks 2018-10-10 14:52:00 2018-10-10 14:52:00 Outpatient [facility] [id number] eClinicalWorks 2018-10-10 10:30:00 2018-10-10 10:30:00 Outpatient Juan José Meza [facility] [id number] 2018-09-28 10:31:00 2018-09-28 10:31:00 Outpatient [facility] [id number] eClinicalWorks 2018-09-26 11:00:00 2018-09-26 11:00:00 Outpatient [facility] [id number] eClinicalWorks 2018-09-24 10:45:00 2018-09-24 10:45:00 Outpatient [facility] [id number] eClinicalWorks 2018-09-20 14:00:00 2018-09-20 14:00:00 Outpatient [facility] [id number] eClinicalWorks 2018-08-15 11:01:15 2018-09-18 11:00:00 Outpatient Deborah Manuel [facility] [id number] 2018-09-12 11:15:00 2018-09-12 23:59:59 Outpatient Juan José Meza [facility] [id number] 2018-09-05 09:30:00 2018-09-05 09:30:00 Appointment; GINGER BRANDON M.D. HUANG, EDDIE, M.D. [facility] [place] [id number] [facility] 2018-08-21 15:00:00 2018-08-21 15:00:00 Outpatient [facility] [id number] eClinicalWorks 2018-08-14 13:05:00 2018-08-14 13:05:00 Outpatient [facility] [id number] eClinicalWorks 2018-08-14 13:03:00 2018-08-14 13:03:00 Outpatient [facility] [id number] eClinicalWorks 2018-08-13 08:28:00 2018-08-13 23:59:00 Outpatient Eliazar Solomon [facility] M[facility] [id number] 2018-08-10 08:45:00 2018-08-10 08:45:00 Outpatient [facility] [id number] eClinicalWorks 2018-07-16 11:45:00 2018-07-16 11:45:00 Outpatient [facility] [id number] eClinicalWorks 2018-07-13 10:01:00 2018-07-13 10:01:00 Outpatient [facility] [id number] eClinicalWorks 2018-03-28 15:00:00 2018-03-28 15:00:00 Outpatient [facility] [id number] eClinicalWorks 2018-03-27 11:30:00 2018-03-27 11:30:00 Outpatient [facility] [id number] eClinicalWorks 2018-02-21 15:36:00 2018-02-21 15:36:00 [facility] [id number] eClinicalWorks 2018-02-21 15:31:00 2018-02-21 15:31:00 [facility] [place] [id number] eClinicalWorks 2017-10-19 13:19:00 2017-10-19 23:59:00 Outpatient Paulo Johnson [facility] [id number] Results Test Description Test Time Test Comments [...] code = CA) 8.7 mg/dL 8.5-10.1 N [id number] 15:51:00* Test Item Value Reference Range Interpretation Comments TROPONIN-I (test code = TROPI) <0.015 ng/mL 0-0.045 N BASIC METABOLIC [id number] 15:43:00* Test Item Value Reference Range Interpretation [...] code = CA) 8.7 mg/dL 8.5-10.1 N [id number] 15:43:00* Test Item Value Reference Range Interpretation Comments TROPONIN-I (test code = TROPI) ng/mL 0-0.045 CBC W/O [id number] 15:41:00* Test Item Value Reference Range Interpretation [...] MPV) 9.0 fL 6.7-11.0 N CBC W/O [id number] 15:28:00* Test Item Value Reference Range Interpretation [...] MPV) fL 6.7-11.0 - CT C-SPINE W/O [id number] 15:05:00 Name: KURTIS PASTRANA [facility] : 1950 Age/S: 69 / F [address] [facility] Unit #: [id number] Loc: [place] [address] Phys: Parth Bond DO Acct: [id number] Dis Date: Status: REG ER PHONE #: [phone] Exam Date: 07/08/2019 4138 FAX #: [phone] Reason: Neck Pain EXAMS: CPT CODE: [id number] CT C-SPINE W/O CONTRAST 29122 REASON FOR EXAM: Neck Pain EXAM ORDER DATE: 07/08/2019 2:37 PM Ordering Kwame: Parth Bond DO PROCEDURE: - CT C-SPINE [...] Garcia RT(R)(CT) CTDI: DLP: Trnscb Date/Time: 07/08/20 19 (6375) YakovVTL Orig Print D/T: S: 07/08/2019 (8825) PAGE 1 Signed Report - XR CHEST 1 [id number] 15:03:00 FAX: Eliceo Ying DO [phone] [facility]: St: REG FAX: Parth Bond DO Name: KURTIS PASTRANA [facility] : 1950 Age/S: 69/F [address] [facility] Unit #: [id number] Loc: [place] [address] Phys: Parth Bond DO Acct: [id number] Dis Date: Status: REG ER PHONE #: [phone] Exam Date: 07/08/2019 1452 FAX #: [phone] Reason: CHEST PAIN EXAMS: CPT CODE: [id number] XR CHEST 1 V 70542 REASON FOR EXAM: CHEST PAIN EXAM ORDER [...] are unremarkable. IMPRESSION: No active disease. at 8702 Reported and signed by: Roger Cooley M.D. CC: Eliceo Skinner DO; Parth Bond DO Technologist: Anita Angulo RT(R) Trnscrd Date/Time/By: 07/08/2019 (5704) : By: Favian Orig Print D/T: S: 07/08/2019 (9386) PAGE 1 Signed Report - CT HEAD/BRAIN W/O [id number] 14:50:00 Name: KURTIS PASTRANA [facility] : 1950 Age/S: 69 / F [address] Unit #: [id number] Loc: [place] [address] Phys: Parth Bond DO Acct: [id number] Dis Date: Status: REG ER PHONE #: [phone] Exam Date: 07/08/2019 1444 FAX #: [phone] Reason: HEADACHE EXAMS: CPT CODE: [id number] CT HEAD/BRAIN W/O CONT 50671 REASON FOR EXAM: HEADACHE EXAM ORDER DATE: 07/08/2019 2:37 PM Ordering MDomitila: Parth Bond DO PROCEDURE: - CT HEAD/BRAIN [...] Garcia RT(R)(CT) CTDI: DLP: Trnscb Date/Time: 07/08/2019 (1450) Favian Orig Print D/T: S: 07/08/2019 (4966) PAGE 1 Signed Report SCR MAMM BILATERAL BRYANT CAD [id number] 12:36:19 - SCR MAMM BILATERAL BRYANT CAD DIGITALBILATERAL DIGITAL SCREENING MAMMOGRAM 3D/2D WITH CAD: 9/4/2019CLINICAL: Asymptomatic. Digital breast tomosynthesis was performed in addition to routine CC and MLO views. Current mammographic images were evaluated by either a [employer] M-Vu or a [employer] ImageChecker CAD (computer aided detection system). Comparison is made to exams dated 03/20/2018 mammogram, 11/30/2016 mammogram - [facility], and 10/04/2013 mammogram - [facility]. The tissue of both breasts is predominantly fatty. There are benign calcifications in both breasts. No suspicious mass, architectural distortion, malignant type calcification, or lymph node abnormality detected. Breast architecture is stable compared to prior exams.IMPRESSION: BENIGNThere is no mammographic evidence of malignancy. Resume annual screening mammography in one year. Leeann winter/penrad:06/12/2019 12:36:19 Imagi ng Technologist: Marina ELLER, [facility] sent: JAZZMINE Erickson 1-2 Normal Mammogram BI-RADS: 2 Benign[U] XRAY SHOULDER MIN 2 VWS RIGHT [id number] 2018-09-05 10:27:00Images acquired, not reported on this accession number. [facility]
--- OUTSIDE RECORDS SUMMARY | 2020-09-11 20:14 | XMS REPORT | Clinical Summary ---
Author Author [employer] [facility] [employer] Address Unknown Phone Unavailable Care Team Providers Care Seconds Handler Name Role Phone Paulo Johnson MD PCP Allergies Comments Active Allergy Reactions Severity Noted Date Ciprofloxacin 03/19/2018 Medications End Date Status Medication Sig Dispensed Refills Start Date Active ibuprofen (ADVIL,MOTRIN) 0 800 MG tablet 8 Active lisinopril 0 (PRINIVIL,ZESTRIL) 5 mg 8 tablet Active loratadine (CLARITIN) 10 0 201 mg tablet 8 Active lovastatin (MEVACOR) 20 0 201 MG tablet 8 Active omeprazole (PriLOSEC) 20 0 MG capsule 8 Active Problems No known active problems Encounters Care Team Description Date Type Specialty Karey Urbina MA Pain of left hand (Primary Dx) 09/11/2020 Orders Only Orthopedic Surgery 09/11/2020 Travel after 09/11/2019 Surgical History Surgery Date Site/Laterality Comments POLYPECTOMY CHOLECYSTECTOMY HYSTERECTOMY CERVICAL SPINE SURGERY Medical History Medical History Date Comments Allergic Hypertension Hypercholesterolemia Social History Date Tobacco Use Types Packs/Day Years Used Never Smoker Smokeless Tobacco: Never Used Drinks/Week oz/Week Comments Alcohol Use No Sex Assigned at Date Recorded Not on file Industry Job Start Date Occupation Not on file Not on file Not on file Date Recorded COVID-19 Exposure Response 09/11/2020 11:20 AM 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 Last Filed Vital Signs Not on file Plan of Treatment Care Team Description Date Type Specialty Holland Almaraz MD 2019 [facility] [address] [place], [place] [id number] 09/14/2020 Office Visit Orthopedic Surgery Health Maintenance Due Date Last Done Comments BREAST CANCER SCREENING 1998 COLONOSCOPY SCREENING 1998 SHINGLES VACCINES (#1) 1998 65+ PNEUMOCOCCAL VACCINE 2013 (1 of 1 - PPSV23) INFLUENZA VACCINE 05/09/2020 Results Not on fileafter 09/11/2019 Insurance Type Payer Benefit Subscriber ID Effective Phone Address Plan / Dates Group HMO HUMANA MEDICARE HUMANA HMO [id number] 2017-P GOLD PLUS resent MEDICARE Advance Directives For more information, please contact: [phone] 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
--- OUTSIDE RECORDS SUMMARY | 2020-09-11 20:14 | XMS REPORT | Continuity of Care Document ---
Author Author [employer] Address Unknown Phone Unavailable Care Team Providers Care Certified Nursing Attendant Name Role Phone [employer] Unavailable Un available Problems Problem Status Onset Date Classification Date Reported Comments Source DX:M79.89 OTHER SPECIFIED SOFT TISSUE DI Active 04/23/2020 [facility] Epigastric pain 08/17/2018 03/03/2019 [facility] Encounter for general adult medical exam ination without abnormal findings 10/25/2017 01/25/2018 [facility] Z[facility] Active 10/19/2017 [facility] Newly diagnosed diabetes Active Problem 11/01/2019 [facility] [...] [facility] Ganglion cyst Active Problem 02/22/2018 [facility] Primary osteoarthritis of right foot Active Problem [facility] Glaucoma of both eyes, unspecified [...] TAKES MEDICATION DUE TO FAMILY HX [facility] [place] Hypertensive disorder, systemic arterial (disorder) Resolved Problem 04/25/2020 [facility] [place] Simple obesity (disorder) Acti ve Problem [facility], [facility] [place] Eructation 03/03/2019 [facility] [place] Essential (primary) hypertension 03/03/2019 [facility] [place] Obesity, unspecified 03/03/2019 [facility] [place] Body mass index (BMI) 31.0-31.9, adult 03/03/2019 [facility] [place] Personal history of nicotine dependence 03/03/2019 [facility] [place] Dietary counseling and surveillance 03/03/2019 [facility] [place] Diaphragmatic hernia without obstruction or gangrene 03/03/2019 [facility] [place] Diverticulosis of intestine, part unspec ified, without perforation or abscess without bleeding 03/03/2019 [facility] [place] Benign neoplasm of right adrenal gland 03/03/2019 [facility] [place] Cyst of kidney, acquired 03/03/2019 [facility] [place] Medications Medication Details Route Status Patient Instructions Ordering Provider Order Date Source Xyzal 1 tablet Orally Active 5 MG Orally Once a day [facility] 08/06/2020 [facility] Benzonatate 1 capsule Orally Active 200 MG Orally Q8 PRN Tereso 01/02/2020 [facility] Azithromycin 1 tablet Orally Active 500 MG Orally once ashok y Tereso 01/02/2020 [facility] Zithromax Z-Ludwin 2 tablets on the first day, then 1 tablet daily for 4 days Orally Active 250 MG Orally Once a day [place] 11/15/2019 [facility] Sucralfate 1 tablet on an empt y stomach Orally Active 1 GM Orally Twice a day [facility] 05/07/2019 [facility] Pantoprazole Sodium 1 tablet Orally Active 20 mg Orally Once a day [facility] 05/07/2019 [facility] Dicyclomine HCl 2 capsules Orally Active 10 mg Orally Four times a day [facility] 05/07/2019 [facility] Ondansetron 1 tablet on the to ngue and allow to dissolve as needed Orally Active 8 MG Orally twice a day (bid) as needed (prn) [facility] 05/07/2019 [facility] Bactrim DS 1 tablet Orally Active 800-160 MG Orally Twice a day [facility] 01/08/2019 [facility] Valtrex 1 tablet Orally Active 1 GM Orally three times a day (tid) [facility] 01/08/2019 [facility] Meloxicam 1 tablet Orally Active 15 MG Orally Once a day [facility] 10/25/2018 [facility] Augmentin 1 tablet Orally Active 875-125 MG Orally every 12 hrs [facility] 10/22/2018 [facility] Medrol (Ludwin) as directed Orally Active 4 mg Orally as directed [facility] 09/28/2018 [facility] Tramadol HCl 1 tablet as needed Orally Active 50 mg Orally up to BID [place] 09/20/2018 [facility] Protonix 40 mg, PO, Daily, # 3 0 tab, 0 Refill(s) Active 09/12/2018 [facility] rosuvastatin PO, Bedtime, 0 Re fill(s) Active 09/12/2018 [facility] Losartan PO, Daily, 0 Refill(s) Active 09/12/2018 [facility] Bromfed DM 10 ml Orally Active 30-2-10 MG/5ML Orally e very 4 hrs prn [place] 08/21/2018 [facility] Augmentin 1 tablet Orally Active 875-125 MG Orally every 12 hrs [facility] Richardson 08/21/2018 [facility] Rosuvastatin Calcium 1 tablet Orally Active 40 mg Orally Once a day [place] 08/10/2018 [facility] Losartan Potassium 1 tablet Orally Active 25 MG Orally Once a day [place] 07/16/2018 [facility] Medrol as directed & to be sta rted sat am as discussed w/ pt Orally Active 4 mg Orally as directed Nayla galicia 03/28/2018 [facility] Augmentin 1 tablet Orally Active 875-125 MG Orally every 12 hrs [place] 03/28/2018 [facility] Tramadol HCl 1 tablet as needed Orally Active 50 mg Orally up to BID Taras Richardson [facility] Lisinopril 1 tablet Orally Active 5 MG Orally Once a day [facility] Lovastatin 1 tablet with a meal Orally Active 10 MG Orally Once a day Taras Richardson [facility] Vitamin B12 not defined Orally Active 100 MCG Orally Taras Richardson [facility] Tramadol HCl 1 tablet as needed Orally Active 50 mg Orally up to BID [facility] Losartan Potassium 1 tablet Orally Active 25 MG Orally Once a day [facility] Rosuvastatin Calcium 1 tablet Orally Active 40 MG Orally qd [facility] Allergies, Adverse Reactions, Alerts Substance Category Reaction Severity Reaction type Status Date Reported Comments Source CIPRO Adverse Reaction stomach upset Adverse Reaction Active 08/06/2020 [facility] Immunizations No Data [...] vein thrombosis. Herb Degroot On 04/23/2020 13:40:41; [id number] 04/23/2020 [facility] Abdomen/Pelvis w/wo IV contrast CT Addendum 08/13/2018 at 1136 hours. The left adrenal is normal. EXAM: CT ABDOMEN AND PELVIS WITHOUT AND WITH CONTRAST DATE: 08/13/2018 8:34 AM [facility] CASHIER INDICATION: Upper abdominal pain chronic. Gastritis.. ADDITIONAL [...] exophytic 0.4 cm left renal cyst. 08/13/2018 [facility] Chest 2 views DX Study: Chest 2 views DX 10/19/2017 1:34 PM BINGO CASHIER Clinical Indication:67 years Female - Z00.00 Encounter [...] Value Date Comments Source Weight 179 08/06/2020 [facility] Height 61 1 [facility] Temperature Oral (F) 97.7 F 08/06/2020 [facility] Heart Rate 86 08/06/2020 [facility] Diastolic (mm [...] [facility] Height 61 0 11/15/2019 [facility] Temperature [...] Provider ADM Date DC Date Status Source [facility] [id number] Paulo Johnson 10/19/2017 10/20/2017 ISAEL De Leon [facility] [place] [facility] [id number] Eliazar Lagos 08/13/2018 08/14/[address] [facility] PreReg [id number] Deborah Pam 08/15/2018 09/18/2018 [facility] Outpatient [id number] AVANI SUSANA 09/12/[address] [facility] Urology [facility] Outpatient [id number] Avani Susana 09/12/2018 09/13/2018 Medical [facility] PreReg [id number] Avani Susana 09/12/2018 10/25/2018 [facility] Outpatient [id number] AVANI SUSANA 10/10/[address] [facility] [id number] Avani Susana 10/10/2018 10/10/2018 [facility] Outpatient [id number] AVANI SUSANA 10/31/2018 Active [facility] Ambulatory Pre-Reg [id number] Avani Susana 10/31/2018 10/31/2018 Medical [facility] Outpatient [id number] AVANI SUSANA 11/21/2018 Active [facility] Outpatient [id number] Avani Susana 01/02/2019 [facility] Outpatient [id number] Deborah Grajeda Dylan 04/23/2020 04/24/2020 [facility] Procedures Procedure Code Date Perfomer Comments Source Gallbladder operation [id number] [facility], ISAEL Leija Hysterectomy<sup>1</sup> 03478 [id number] 1995 [facility], [facility] [place] Neck artery repair [id number] [facility], [facility]EL [place] Assessment and Plan No Data Provided for This Section Plan of Care No Data Provided for This Section Social History Social History Date Source Social History TypeResponse Smoking Status Never smoker; Exposure to Tobacco Smoke None; Cigarette Smoking Last 365 Days No; Reg Smoking Cessation Counseling No entered on: 01/02/19 01/02/2019 [facility] Social History TypeResponse Smoking Status Never smoker; Exposure to Tobacco Smoke None; Cigarette Smoking Last 365 Days No; Reg Smoking Cessation Counseling No entered on: 01/02/19 01/02/2019 [facility] Social History TypeResponse Smoking Status Never smoker; [...]
--- NOTE | 2020-09-11 21:16 | Emergency Department Note ---
History of Present Illnes History of Present Illness Chief Complaint: Extremity Trauma/Pain History of Present Illness This is a 70 year old female PRESENTS TO THE ER C/O INFECTION TO LT LATERAL ASPECT OF HAND; PT STATES HER DOG WAS STARTLED AND PIT HER HAND; PT STATES SHE WAS AT [facility] AND GIVEN AUGMENTIN; PT DENIES FEVER/CHILLS; PT DENIES MINIMAL PAIN; SLIGHT REDNESS NOTED AROUND SITE; NAD NOTED AT THIS TIME; . Historian: Patient Arrival Mode: Car Onset (how long ago): day(s) (1) Location: LEFT HAND Quality: POSSIBLE INFECTED DOG BITE Radiation: Reports non-radiation Severity: mild Onset quality: sudden Duration (how long): day(s) (1) Timing of current episode: constant Progression: unchanged Chronicity: new Context: Reports trauma/injury (DOG BITE) Relieving factors: none Exacerbating factors: none Associated symptoms: Reports denies other symptoms Past Medical/Family History Physician Review I have reviewed the patient's past medical and family history. Any updates have been documented here. Past Medical History Recent Fever: No Clinical Suspicion of Infectio: No New/Unexplained Change in Ment: No Past Medical History: Hypertension Past Surgical History: Hysterectomy Other Surgery: Neck surgery neck surgery Social History Smoking Cessation: Never Smoker Counseling Performed: Yes Any Illegal Drug Use: No Family History Family history of heart diseas: No Review of Systems Review of Systems Constitutional: Reports no symptoms EENTM: Reports no symptoms Cardiovascular: Reports no symptoms Respiratory: Reports no symptoms Gastrointestinal: Reports no symptoms Genitourinary: Reports no symptoms Musculoskeletal: Reports no symptoms Integumentary: Reports no symptoms Neurological: Reports no symptoms Psychological: Reports no symptoms Endocrine: Reports no symptoms Hematological/Lymphatic: Reports no symptoms Physical Exam Related Data Allergies: Coded Allergies: ciprofloxacin (Verified Adverse Reaction, Mild, stomach upset, 09/10/20) Triage Vital Signs Vital Signs Date Time Temp Pulse Resp B/P (MAP) Pulse Ox O2 Delivery O2 Flow Rate FiO2 09/11/20 20:56 99.1 88 20 155/98 100 Room Air Vital signs reviewed: Yes Physical Exam CONSTITUTIONAL Constitutional: Present well-developed, Present well-nourished; Absent distressed HENT HENT: Present normocephalic, Present atraumatic, Present oropharynx clear/moist, Present nose normal HENT L/R: Present left ext ear normal, Present right ext ear normal EYES Eyes: Reports PERRL, Reports conjunctivae normal NECK Neck: Present ROM normal PULMONARY Pulmonary: Present effort normal, Present breath sounds normal CARDIOVASCULAR Cardiovascular: Present regular rhythm, Present heart sounds normal, Present capillary refill normal, Present normal rate GASTROINTESTINAL Abdominal: Present soft, Present nontender, Present bowel sounds normal GENITOURINARY Genitourinary: Present exam deferred SKIN Skin: Present warm, Present dry, Present other (WOUDN TO LEFT HAND WITH SUTURES, NO DRAINAGE, NO SIGN INFECTION) MUSCULOSKELETAL Musculoskeletal: Present ROM normal NEUROLOGICAL Neurological: Present alert, Present oriented x 3, Present no gross motor or sensory deficits PSYCHOLOGICAL Psychological: Present mood/affect normal, Present judgement normal Assessment & Plan Medical Decision Making [facility] WOUND CHECK Assessment & Plan Final Impression: (1) Visit for wound check (2) Dog bite of left hand Depart Disposition: HOME, SELF-CARE Last Vital Signs Date Time Temp Pulse Resp B/P (MAP) Pulse Ox O2 Delivery O2 Flow Rate FiO2 09/11/20 20:56 99.1 88 20 155/98 100 Room Air Home Meds Active Scripts Ibuprofen (IBUPROFEN IB) 200 Mg Tablet, 3 TAB PO Q6H PRN for pain, #90 Prov:VIJAYA SIFUENTES MD 09/10/20 Acetaminophen (ACETAMINOPHEN) 500 Mg Tablet, 1 TAB PO Q6H PRN for pain, #90 THERAPEUTICALLY SUBSTITUTED WITH ACETAMINOPHEN 325MG Prov:VIJAYA SIFUENTES MD 09/10/20 Lactobac Cmb #3/Fos/Pantethine (PROBIOTIC & ACIDOPHILUS CAP) 1 Each Capsule, 1 CAP PO BID, #30 Prov:VIJAYA SIFUENTES MD 09/10/20 Amoxicillin/Potassium Clav (AUGMENTIN 875-125 TABLET) 1 Each Tablet, 875 MG PO DAILY, #20 TAB Prov:VIJAYA SIFUENTES MD 09/10/20 Reported Medications Losartan Potassium (LOSARTAN POTASSIUM) 25 Mg Tablet, DAILY 09/10/20 JAGUAR AYALA MD Sep 11, 2020 21:16
== END 2020-09-11 21:15 | disposition home or self-care (01) ==
LOC: ER 20:11
DX: Z48.01 Encounter for change or removal of surgical wound dressing (principal)
CPT/HCPCS: 99282

== ENCOUNTER 2020-12-22 17:58 | Emergency (ER) | payer MEDICARE ==
[~2020-12-22] VITALS: Ht 154.9 cm; Wt 81.6 kg
[2020-12-22] MEDS ORDERED: AMOXICILLIN/CLAVULANATE K 875 MG TAB PO NR (19:45)
[2020-12-22] MEDS ORDERED: CEPHALEXIN500 MG PO (22:08)
== END 2020-12-22 22:27 | disposition home or self-care (01) ==
LOC: FSED 18:15
DX: S71.151A Open bite, right thigh, initial encounter (principal); W54.0XXA Bitten by dog, initial encounter; Y92.488 Other paved roadways as the place of occurrence of the external cause; I10 Essential (primary) hypertension
CPT/HCPCS: 99283

== ENCOUNTER 2023-01-16 13:45 | Observation (INO) | payer MEDICARE ==
[~2023-01-16] VITALS: Ht 154.9 cm; Wt 81.6 kg
[2023-01-16] VITALS: BP 108/66
[~2023-01-16 13:45] MED LIST changes: +CEPHALEXIN500 MG PO
[2023-01-16] MEDS ORDERED: SODIUM CHLORIDE 0.9% 1000ML 1,000 ML IV ONE (14:00)
[2023-01-16] MEDS ORDERED: ONDANSETRON HCL INJ 2MG/ML 2ML 2 MG/ML VIAL IV PRN ×2 (14:00→17:45)
[2023-01-16] MEDS ORDERED: KETOROLAC TROMETHAMINE 30 MG/ML VIAL IV STA (14:21)
[2023-01-16 14:38] LABS: BASOPHILS % 0.5 % (0.0-1.0); EOSINOPHILS # (AUTO) 0.3 (0.0-0.4); EOSINOPHILS % 4.3 % (0.0-6.0); HEMATOCRIT 37.5 % (34.2-44.1); HEMOGLOBIN 12.6 g/dL (12.0-16.0); LYMPHOCYTES # (AUTO) 0.7 (1.0-3.2); LYMPHOCYTES % 9.4 % (18.0-39.1); MEAN CORPUSCULAR HEMOGLOBIN 28.8 pg (28-32); MEAN CORPUSCULAR HGB CONC 33.6 g/dL (31-35); MEAN CORPUSCULAR VOLUME 85.6 fL (81-99); MONOCYTES # (AUTO) 0.3 (0.2-0.8); MONOCYTES % 4.4 % (4.4-11.3); NEUTROPHILS % 81.1 % (38.7-80.0); PLATELET COUNT 294 x10e3/uL (140-360); RED BLOOD COUNT 4.38 x10e6/uL (3.6-5.1); RED CELL DISTRIBUTION WIDTH 12.6 % (11.7-14.4)
[2023-01-16 14:56] LABS: ALBUMIN 3.5 g/dL (3.5-5.0); ALBUMIN/GLOBULIN RATIO 1.2 (0.8-2.0); ANION GAP 14.6 mmol/L (8-16); CALCIUM 8.9 mg/dL (8.4-10.2); CREATININE, SERUM 0.97 mg/dL (0.57-1.11); POTASSIUM 3.6 mmol/L (3.5-5.1)
[2023-01-16] MEDS ORDERED: SODIUM CHLORIDE FLUSH 10 ML SYR INJ PRN (17:45)
[2023-01-16] MEDS ORDERED: ASPIRIN 81 MG CHEW TAB PO ONE ×2 (17:45)
[2023-01-16] MEDS ORDERED: Morphine 2mg Syringe 2 MG/ML SYR IV PRN (17:45)
[2023-01-16 22:46] LABS: CREATINE KINASE 226 IU/L (29-168)
[2023-01-17] VITALS: BP 108/66
[2023-01-17 04:00] VITALS: BP 111/85
[2023-01-17 06:24] LABS: BASOPHILS # (AUTO) 0.1 (0.0-0.1); BASOPHILS % 0.8 % (0.0-1.0); EOSINOPHILS # (AUTO) 0.5 (0.0-0.4); EOSINOPHILS % 7.9 % (0.0-6.0); HEMATOCRIT 34.7 % (34.2-44.1); HEMOGLOBIN 11.5 g/dL (12.0-16.0); LYMPHOCYTES # (AUTO) 0.8 (1.0-3.2); LYMPHOCYTES % 13.9 % (18.0-39.1); MEAN CORPUSCULAR HEMOGLOBIN 28.5 pg (28-32); MEAN CORPUSCULAR HGB CONC 33.1 g/dL (31-35); MEAN CORPUSCULAR VOLUME 86.1 fL (81-99); MONOCYTES # (AUTO) 0.4 (0.2-0.8); NEUTROPHILS # (AUTO) 4.2 (2.1-6.9); NEUTROPHILS % 70.2 % (38.7-80.0); PLATELET COUNT 261 x10e3/uL (140-360); RED BLOOD COUNT 4.03 x10e6/uL (3.6-5.1); RED CELL DISTRIBUTION WIDTH 12.7 % (11.7-14.4)
[2023-01-17 07:03] LABS: ALBUMIN 3.2 g/dL (3.5-5.0); ALBUMIN/GLOBULIN RATIO 1.2 (0.8-2.0); CALCIUM 8.7 mg/dL (8.4-10.2); CREATININE, SERUM 0.86 mg/dL (0.57-1.11)
[2023-01-17 07:13] LABS: CREATINE KINASE 142 IU/L (29-168)
[2023-01-17] MEDS ORDERED: ASPIRIN 81 MG ENTERIC COATED PO SCH (09:00)
[2023-01-17] MEDS ORDERED: KETOROLAC TROMETHAMINE 30 MG/ML VIAL IV ONE (13:15)
== END 2023-01-17 14:30 | disposition home or self-care (01) ==
LOC: ER 13:50 → INTOOBSV 17:43 → ERHOLD 17:43 → MED/SURG2 01-17 11:48
PROVIDERS: ADMIT Internal Medicine; ATTEND Internal Medicine
DX: R07.89 Other chest pain (principal); I10 Essential (primary) hypertension; Z88.1 Allergy status to other antibiotic agents; Z20.822 Contact with and (suspected) exposure to COVID-19; Z79.899 Other long term (current) drug therapy; Z82.49 Family history of ischemic heart disease and other diseases of the circulatory system
CPT/HCPCS: 0223U; 36415 ×2; 71046; 80053 ×2; 82550 ×2; 82553 ×2; 84484 ×2; 85025 ×2; 85379; 93005 ×2; 99284; G0378 ×2; J1885 ×2; J2270 ×2; J2405 ×2